=== PATIENT | male | born 1975 | race Caucasian/White ===

== ENCOUNTER 2019-09-26 21:37 | Emergency (ER) | payer OTHER, SELFPAY ==
[2019-09-26 21:49] VITALS: BP 145/87; PULSE 73; RESP 14; TEMP 36.7; O2SAT 98; BMI 33.5
[2019-09-26 22:13] VITALS: BP 121/69; PULSE 69; RESP 18; O2SAT 97
--- NOTE | 2019-09-26 22:21 | XR_ITS ---
PROCEDURE: XR FINGER LT MIN 2V CLINICAL INDICATION: Left pointer finger foreign body COMPARISON: No exams were available for comparison FINDINGS: No fracture or dislocation. No lytic or blastic change. There is normal mineralization. The joint spaces are well-preserved. No significant degenerative/arthritic changes. No erosive changes evident. Other findings:No radiopaque foreign body apparent. There is some minimal periarticular calcification medially and laterally. Dorsal osteophyte is present at the DIP joint arising from the distal phalanx IMPRESSION: No acute findings. Dictated by: Ed Horner MD 09/27/2019 07:47 Electronically signed by Ed Horner MD in [place] 09/27/2019 07:47
--- NOTE | 2019-09-26 22:23 | HMH.EDSKAF ---
ED Disposition Clinical Impression: Foreign body of finger of left hand Qualifiers: Encounter type: initial encounter Qualified Code(s): S60.459A - Superficial foreign body of unspecified finger, initial encounter Disposition: Home, Self-Care Condition on Discharge: Good Instructions: DI for Removal of Foreign Body From Skin Additional Instructions: use meds and see pcp for follow up Prescriptions: Mupirocin [Bactroban 2% Ointment 22gm tube] 1 applicatio TP BID #1 tube Prescription Printed Referrals: Provider,Referral, [Primary Care Provider] - - Critical Care Critical Care Time: No Attestation: On 09/26/19, the high probability of a clinically significant, sudden or life threatening deterioration of the following system(s) required my full and direct attention, intervention and personal management. The time I documented below is in addition to time spent performing reported procedures but includes the following listed in this critical care notation. Medical Decision Making - Medical Records Medical records reviewed: Yes: I reviewed the patient's medical records. - Simeon Inquiry Pt receiving controlled substance: No Vital Signs: 09/26/19 21:49 09/26/19 22:13 Temperature 98.1 F Temperature Source Oral Pulse Rate [Right Brachial] 73 69 Respiratory Rate 14 18 Blood Pressure [Right Arm] 145/87 H 121/69 Blood Pressure Mean [Right Arm] 106 86 Blood Pressure Source [Right Arm] Automatic Cuff Blood Pressure Position [Right Arm] Sitting 02 Sat by Pulse Oximetry 98 97 Oxygen Delivery Method Room Air Room Air Orders (Tests/Meds): ORDERS Category Date Time Status XR finger LT min 2V Stat Exams 09/26/19 22:21 Taken - Radiology Data #1 Image(s): Finger(s)/Thumb Image Reviewed: Yes I reviewed the patient's radiology image Preliminary Findings: Normal/NAD Skin/Abscess/FB HPI - General Chief complaint: Skin/Abscess/Foreign Body Stated complaint: possible foreign object/splinter in left finger Time Seen by Provider: 09/26/19 22:00 Mode of Arrival: Ambulatory Source of Information: Patient, Medical Record Limitations: No Limitations Description of Symptoms (Recalled from ER Triage Doc. by RN): Patient reports he has something in his left pointer finger. Patient is unsure what may be in his finger, just noticed it about 8 hours ago and has been picking at it but not able to get anything out. - History of Present Illness HPI narrative: possible fb lt index finger tonight complaint: foreign body Onset (ago): hour(s) Tetanus up to date: yes Location: LUE Severity: moderate Quality: foreign body sensation Relieving factors: none Associated symptoms: denies other symptoms Treatments prior to arrival: none - Related Data Previous Rx's Medication Instructions Recorded Mupirocin [Bactroban 2% Ointment 1 applicatio TP BID #1 tube 09/26/19 22gm tube] Allergies Allergy/AdvReac Type Severity Reaction Status Date / Time No Known Allergies Allergy Verified 09/26/19 22:11 [facility] History - Hepatitis A Screen Drug use history?: No High risk sexual behaviors?: No History of sexually transmitted infection?: No Currently employed?: No Childcare worker?: No Do you have indoor plumbing?: Yes Do you have electricity?: Yes Attestation statement:: This patient has been screened for Hepatitis A risk factors. I have reviewed the patient's past medical history: Yes Medical History: Denies:: Diabetes Mellitus Type 1, Diabetes Mellitus Type 2 - Social History Smoking Status: Current every day smoker Tobacco Type: cigarettes # Packs/Day (cigarettes): 1 Alcohol Intake: never Alcohol Intake Frequency:: a few times a week Occupational Status: unemployed ROS Obtained: Yes All systems reviewed & no additional complaints - Constitutional Constitutional: Denies fever(s) - Eyes Eyes: Denies change in vision - ENT Ears, Nose, Mouth, and Throat: Denies sore t
[2019-09-26 23:24] VITALS: BP 135/85; PULSE 67; RESP 16; TEMP 36.7; O2SAT 97
== END 2019-09-26 23:27 | disposition home or self-care (01) ==
PROVIDERS: Emergency Provider Emergency Medicine
DX: S60.451A Superficial foreign body of left index finger, initial encounter (principal); F17.210 Nicotine dependence, cigarettes, uncomplicated
CPT/HCPCS: 73140; 99282

== ENCOUNTER 2019-10-21 21:55 | Emergency (ER) | payer OTHER, SELFPAY ==
[2019-10-21 22:08] VITALS: BP 143/90; PULSE 89; RESP 16; O2SAT 98; BMI 33.6
--- NOTE | 2019-10-21 22:51 | PC.NURSE ---
bilateral ears irrigated
[2019-10-21 23:02] VITALS: BP 123/75; PULSE 80; RESP 15; TEMP 36.6; O2SAT 98
--- NOTE | 2019-10-21 23:02 | HMH.EDEAR ---
ED Disposition Clinical Impression: Otitis externa Qualifiers: Otitis externa type: swimmer's ear Chronicity: acute Laterality: bilateral Qualified Code(s): H60.333 - Swimmer's ear, bilateral Disposition: Home, Self-Care Condition on Discharge: Good Instructions: DI for Otitis Externa Additional Instructions: use meds and see pcp for follow up Prescriptions: cephALEXin [Keflex 500mg Cap] 500 mg PO TID #30 cap Transmission Status: Pending to [facility] predniSONE [Prednisone 20mg Tab] 20 mg PO BID #10 tab Transmission Status: Pending to [facility] Referrals: Matheus Grant [Primary Care Provider] - - Critical Care Critical Care Time: No Attestation: On 10/21/19, the high probability of a clinically significant, sudden or life threatening deterioration of the following system(s) required my full and direct attention, intervention and personal management. The time I documented below is in addition to time spent performing reported procedures but includes the following listed in this critical care notation. Medical Decision Making - Medical Records Medical records reviewed: Yes: I reviewed the patient's medical records. - Simeon Inquiry Pt receiving controlled substance: No Vital Signs: 10/21/19 22:08 Pulse Rate [Right Brachial] 89 Respiratory Rate 16 Blood Pressure [Right Arm] 143/90 H Blood Pressure Mean [Right Arm] 107 Blood Pressure Source [Right Arm] Automatic Cuff Blood Pressure Position [Right Arm] Sitting 02 Sat by Pulse Oximetry 98 Oxygen Delivery Method Room Air Orders (Tests/Meds): ED MEDICATIONS Discontinued Medications Generic Name Dose Route Start Last Admin Trade Name Dickson PRN Reason Stop Dose Admin Cephalexin HCl 500 mg 10/21/19 22:57 10/21/19 23:01 Cephalexin 500mg Capsule PO 10/21/19 22:58 500 mg ONCE ONE Administration Protocol Neomycin/Polymyxin/Hydrocortisone 10 ml 10/21/19 22:57 10/21/19 23:01 Upehnpzh-Mpytzryeq-Yh Otic Susp 10ml OT 10/21/19 22:58 2 drops ONCE ONE Administration Ear HPI - General Chief complaint: Ear Stated complaint: Both ears pain Time Seen by Provider: 10/21/19 23:02 Mode of Arrival: Family Vehicle Source of Information: Patient, Medical Record Limitations: No Limitations Description of Symptoms (Recalled from ER Triage Doc. by RN): bilateral ear pain from swimming. has tried swimmer's ear meds without any relief. - History of Present Illness HPI Narrative: ear pain rt >lt with no other c/o MD Complaint: ear pain Location: bilateral Duration: constant Severity: moderate Discharge from ear: no Treatment prior to arrival: eardrops - Related Data Previous Rx's Medication Instructions Recorded Mupirocin [Bactroban 2% Ointment 1 applicatio TP BID #1 tube 09/26/19 22gm tube] cephALEXin [Keflex 500mg Cap] 500 mg PO TID #30 cap 10/21/19 predniSONE [Prednisone 20mg 20 mg PO BID #10 tab 10/21/19 Tab] Allergies Allergy/AdvReac Type Severity Reaction Status Date / Time No Known Allergies Allergy Verified 09/26/19 22:11 [facility] History - Hepatitis A Screen Drug use history?: No High risk sexual behaviors?: No History of sexually transmitted infection?: No Currently employed?: No Childcare worker?: No Do you have indoor plumbing?: Yes Do you have electricity?: Yes Attestation statement:: This patient has been screened for Hepatitis A risk factors. I have reviewed the patient's past medical history: Yes Medical History: Denies:: Diabetes Mellitus Type 1, Diabetes Mellitus Type 2 - Social History Smoking Status: Current every day smoker Tobacco Type: cigarettes # Packs/Day (cigarettes): 1 Alcohol Intake: never Alcohol Intake Frequency:: a few times a week Occupational Status: unemployed ROS Obtained: Yes All systems reviewed & no additional complaints - Constitutional Constitutional: Denies fever(s) - Eyes Eyes: Denies change in vision
== END 2019-10-21 23:16 | disposition home or self-care (01) ==
PROVIDERS: Emergency Provider Emergency Medicine; PCP Family Medicine
DX: H60.333 Swimmer's ear, bilateral (principal); F17.210 Nicotine dependence, cigarettes, uncomplicated
CPT/HCPCS: 99281; 99282

== ENCOUNTER 2019-11-27 12:33 | Emergency (ER) | payer OTHER, SELFPAY ==
[2019-11-27 12:34] VITALS: BP 168/96; PULSE 79; RESP 16; TEMP 36.6; O2SAT 96; BMI 30.8
--- NOTE | 2019-11-27 12:50 | XR_ITS ---
PROCEDURE: XR SHOULDER RT MIN 2V CLINICAL INDICATION: pain persistent after injury last year COMPARISON: No exams were available for comparison FINDINGS: The lateral clavicle is intact and the AC joint appears normal. The humeral head and glenoid appear normal. There is a slightly lateral downsloping acromion process which could predispose to a mild degree of impingement syndrome and if clinically indicated possibly a follow-up MRI scan right shoulder would be helpful for additional evaluation. IMPRESSION: Possible mild predisposition to impingement syndrome, otherwise negative right shoulder Dictated Dr. Blair Mendez MD 11/27/2019 13:28 Dr. Blair Ramos MD in [place] 11/27/2019 13:28
--- NOTE | 2019-11-27 13:12 | XR_ITS ---
PROCEDURE: XR ELBOW RT MIN 3V CLINICAL INDICATION: pain COMPARISON: No exams were available for comparison FINDINGS: No fracture or dislocation. No lytic or blastic change. There is normal mineralization. The joint spaces are well-preserved. No significant degenerative/arthritic changes. No erosive changes evident. There are small ossifications seen just posterior to the supracondylar humerus on the lateral view which have smooth borders and probably are related to previous repeated minor trauma. There is minor spurring of the radial head. Other findings:There is no abnormal fat pad sign.. IMPRESSION: Minor posttraumatic and or arthritic changes, no acute bony pathology seen Dictated Dr. Blair Mendez MD 11/27/2019 13:32 Dr. Blair Ramos MD in [place] 11/27/2019 13:32
--- NOTE | 2019-11-27 13:20 | HMH.EDGENADL ---
ED Disposition Clinical Impression: Tendinitis of right shoulder Disposition: Home, Self-Care Condition on Discharge: Good Instructions: DI for Acute Pain -- Adult Prescriptions: methylPREDNISolone [Medrol 4mg tab] 4 mg PO DIRECTED #21 tab Transmission Status: Pending to [facility] Nabumetone 750 mg PO BID 10 Days #20 tab Transmission Status: Pending to [facility] Referrals: Matheus Grant [Primary Care Provider] - - Critical Care Critical Care Time: No Attestation: On , the high probability of a clinically significant, sudden or life threatening deterioration of the following system(s) required my full and direct attention, intervention and personal management. The time I documented below is in addition to time spent performing reported procedures but includes the following listed in this critical care notation. Medical Decision Making - Medical Records Medical records reviewed: Yes: I reviewed the patient's medical records. - Simeon Inquiry Pt receiving controlled substance: No Vital Signs: 11/27/19 12:34 Temperature 98 F Temperature Source Oral Pulse Rate [Right] 79 Respiratory Rate 16 Blood Pressure [Right Arm] 168/96 H Blood Pressure Mean [Right Arm] 120 Blood Pressure Source [Right Arm] Automatic Cuff Blood Pressure Position [Right Arm] Sitting 02 Sat by Pulse Oximetry 96 Oxygen Delivery Method Room Air - Lab Data Lab results reviewed: Yes: I reviewed the patient's lab results. Orders (Tests/Meds): ORDERS Category Date Time Status XR elbow RT min 3V Stat Exams 11/27/19 13:12 Ordered XR shoulder RT min 2V Stat Exams 11/27/19 12:50 Ordered - Radiology Data #1 Image(s): Shoulder Preliminary Findings: Normal/NAD General Adult HPI - General Chief complaint: PAIN Stated complaint: R arm pain Time Seen by Provider: 11/27/19 13:20 Mode of Arrival: Ambulatory Source of Information: Patient Limitations: No Limitations Description of Symptoms (Recalled from ER Triage Doc. by RN): Pt advises he has right arm pain and shoulder pain for the past week. Advises he injured it last year playing baseball and this week it has just been hurting a lot. - History of Present Illness HPI narrative: A 43-year-old male presents with right shoulder and arm pain. He states he injured the shoulder about a year ago playing baseball. Over the last week it has been bothering more than usual. He states the pain is more with lateral movements with abduction then abduction or flexion of the shoulder. He rates his pain currently as 4 out of 10 and classifies it as sharp. He denies any other issues. He states that he has no other health problems.Patient denies any recent cough or shortness of breath, patient denies any sore throat or headache, patient denies any loss of taste or smell, patient denies any malaise or fatigue, patient denies any abdominal pain nausea vomiting or diarrhea. - Related Data Previous Rx's Medication Instructions Recorded Mupirocin [Bactroban 2% Ointment 1 applicatio TP BID #1 tube 09/26/19 22gm tube] cephALEXin [Keflex 500mg Cap] 500 mg PO TID #30 cap 10/21/19 predniSONE [Prednisone 20mg 20 mg PO BID #10 tab 10/21/19 Tab] Nabumetone 750 mg PO BID 10 Days #20 tab 11/27/19 methylPREDNISolone [Medrol 4mg 4 mg PO DIRECTED #21 tab 11/27/19 tab] Allergies Allergy/AdvReac Type Severity Reaction Status Date / Time No Known Allergies Allergy Verified 09/26/19 22:11 [facility] History - Hepatitis A Screen Drug use history?: No High risk sexual behaviors?: No History of sexually transmitted infection?: No Currently employed?: No Childcare worker?: No Do you have indoor plumbing?: Yes Do you have electricity?: Yes Attestation statement:: This patient has been screened for Hepatitis A risk factors. I have reviewed the patient's past medical history: Yes Medical History: Denies:: Diabetes Mellitus Type 1,
[2019-11-27 13:40] VITALS: BP 160/87; PULSE 87; RESP 17; TEMP 36.8; O2SAT 100
== END 2019-11-27 14:05 | disposition home or self-care (01) ==
LOC: ER 15:24
PROVIDERS: Emergency Provider Family Medicine; PCP Family Medicine
DX: M75.81 Other shoulder lesions, right shoulder (principal); F17.210 Nicotine dependence, cigarettes, uncomplicated
CPT/HCPCS: 73030; 73080; 99282

== ENCOUNTER 2019-12-31 00:29 | Emergency (ER) | payer OTHER, SELFPAY ==
[2019-12-31 00:49] VITALS: BP 147/88; PULSE 81; RESP 16; TEMP 36.7; O2SAT 97; BMI 30.9
--- NOTE | 2019-12-31 01:05 | HMH.EDEYEP ---
ED Disposition Clinical Impression: Conjunctivitis Qualifiers: Conjunctivitis type: acute Acute conjunctivitis type: unspecified Laterality: left Qualified Code(s): H10.32 - Unspecified acute conjunctivitis, left eye Disposition: Home, Self-Care Condition on Discharge: Good Instructions: DI for Eye Pain Additional Instructions: use meds as directed and call dr scanlon in [place]- number given pt Referrals: PCP,No [Primary Care Provider] - - Critical Care Critical Care Time: No Attestation: On 12/31/19, the high probability of a clinically significant, sudden or life threatening deterioration of the following system(s) required my full and direct attention, intervention and personal management. The time I documented below is in addition to time spent performing reported procedures but includes the following listed in this critical care notation. Medical Decision Making - Medical Records Medical records reviewed: Yes: I reviewed the patient's medical records. - Simeon Inquiry Pt receiving controlled substance: No Vital Signs: 12/31/19 00:49 Temperature 98.1 F Temperature Source Oral Pulse Rate [Right Brachial] 81 Respiratory Rate 16 Blood Pressure [Right Arm] 147/88 H Blood Pressure Mean [Right Arm] 107 Blood Pressure Source [Right Arm] Automatic Cuff Blood Pressure Position [Right Arm] Sitting 02 Sat by Pulse Oximetry 97 Oxygen Delivery Method Room Air Eye Problem HPI - General Chief complaint: Eye Problems Stated complaint: AO 12/28/19 foreign body left eye Time Seen by Provider: 12/31/19 01:05 Mode of Arrival: Ambulatory Source of Information: Patient, Medical Record Limitations: No Limitations Description of Symptoms (Recalled from ER Triage Doc. by RN): Patient reports 2 days ago he was cutting wood and that night noticed his left eye was irritated. Patient reports over the next two days his his left eye has gotten red, swollen and painful. - History of Present Illness HPI Narrative: pain over the last few days lt eye with possible foreign body - no gross drainage but red - no visual loss MD chief complaint: eye pain Onset (ago): day(s) Onset description: gradual Location: left eye Place: home Severity: moderate Associated symptoms: none - Related Data Previous Rx's Medication Instructions Recorded Mupirocin [Bactroban 2% Ointment 1 applicatio TP BID #1 tube 09/26/19 22gm tube] cephALEXin [Keflex 500mg Cap] 500 mg PO TID #30 cap 10/21/19 predniSONE [Prednisone 20mg 20 mg PO BID #10 tab 10/21/19 Tab] Nabumetone 750 mg PO BID 10 Days #20 tab 11/27/19 methylPREDNISolone [Medrol 4mg 4 mg PO DIRECTED #21 tab 11/27/19 tab] Allergies Allergy/AdvReac Type Severity Reaction Status Date / Time No Known Allergies Allergy Verified 09/26/19 22:11 [facility] History - Hepatitis A Screen Drug use history?: No High risk sexual behaviors?: No History of sexually transmitted infection?: No Currently employed?: No Childcare worker?: No Do you have indoor plumbing?: Yes Do you have electricity?: Yes Attestation statement:: This patient has been screened for Hepatitis A risk factors. I have reviewed the patient's past medical history: Yes Medical History: Denies:: Diabetes Mellitus Type 1, Diabetes Mellitus Type 2 - Social History Smoking Status: Current every day smoker Tobacco Type: cigarettes # Packs/Day (cigarettes): 1 Alcohol Intake: never Alcohol Intake Frequency:: a few times a week Occupational Status: unemployed ROS Obtained: Yes All systems reviewed & no additional complaints - Constitutional Constitutional: Denies fever(s) - Eyes Eyes: Reports as per HPI, Denies change in vision, Denies loss of vision, Denies photophobia - ENT Ears, Nose, Mouth, and Throat: Denies epistaxis - Cardiovascular Cardiovascular: Denies chest pain - Respiratory Respiratory: No change in phlegm color - Gastrointestinal Gastrointestingal: Denies: diarrhea
[2019-12-31 01:10] VITALS: BP 157/87; PULSE 81; RESP 18; O2SAT 99
[2019-12-31 01:14] VITALS: BP 152/87; PULSE 80; RESP 16; TEMP 36.7; O2SAT 98
== END 2019-12-31 01:18 | disposition home or self-care (01) ==
PROVIDERS: Emergency Provider Emergency Medicine
DX: H10.32 Unspecified acute conjunctivitis, left eye (principal); F17.210 Nicotine dependence, cigarettes, uncomplicated
CPT/HCPCS: 99282

== ENCOUNTER 2020-03-17 15:57 | Emergency (ER) | payer OTHER, SELFPAY ==
--- NOTE | 2020-03-17 15:55 | ECG_ITS ---
APPROVED REPORT Exam: Resting ECG HR:78 bpm ECG Measurements Heart Rate 78 AXES DC 162 P 50 QRSd 102 QRS 62 QT 382 T 75 QTc 435 Conclusion Normal sinus rhythm Normal ECG Electronically signed by : Blaine Monet, 03/18/2020 07:30:59
[2020-03-17 15:58] VITALS: BP 168/111; PULSE 87; RESP 19; TEMP 36.8; O2SAT 98; BMI 24.4
--- NOTE | 2020-03-17 16:07 | XR_ITS ---
PROCEDURE: XR CHEST 2V CLINICAL HISTORY: chest pain COMPARISON: No exams were available for comparison FINDINGS: The cardiomediastinal silhouette and pulmonary vascularity are within normal limits. The lungs are clear without infiltrates, suspicious nodules, or pleural effusions. No acute bony abnormalities. IMPRESSION: No acute findings. Dictated by: Ed Horner MD 03/17/2020 18:02 Ed Horner MD in [place] 03/17/2020 18:02
--- NOTE | 2020-03-17 16:12 | CT_ITS ---
PROCEDURE: CT ABDOMEN PELVIS W CON CLINICAL INDICATION: abd pain Epigastric pain with chest pain COMPARISON: No exams were available for comparison TECHNIQUE: IV Contrast: 75ML Isovue 370 Oral Contrast None Axial images obtained with sagittal and coronal reformats. All CT scans at the facility use one or more dose reduction, viz: automated exposure control, ma/kV adjustment per patient size (including targeted exams where dose is matched to indication, i.e. head), or iterative reconstruction technique. FINDINGS: LOWER THORAX: COPD in the lung bases. Coronary artery calcifications are present. ABDOMEN & PELVIS: Gallbladder appears contracted with minimal thickening of the wall. The liver and spleen have an unremarkable appearance. The adrenal glands have an unremarkable appearance. Pancreas is unremarkable. There is a 2 cm right renal exophytic cyst. No renal or ureteral calculi. No hydronephrosis. There is a mild amount of retained colonic feces. No evidence of appendicitis. No intestinal obstruction or free air. The prostate is slightly enlarged at 4.8 cm. No pelvic mass or abnormal fluid collection. No evidence of diverticulitis. 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 There is kyphosis at that level. IMPRESSION: No acute finding. Dictated by: Ed Horner MD 03/17/2020 17:13 Ed Horner MD in [place] 03/17/2020 17:13
--- NOTE | 2020-03-17 16:13 | HMH.EDCP ---
ED Disposition Clinical Impression: Epigastric pain Chest pain Qualifiers: Chest pain type: unspecified Qualified Code(s): R07.9 - Chest pain, unspecified Disposition: Home, Self-Care Condition on Discharge: Good Additional Instructions: You were seen on an emergency basis. It is very important that you follow up with your primary care provider and/or specialist as we discussed within 2 days. All labs and imaging were obtained and interpreted here to rule out life threatening emergencies, but your final results should be reviewed by your primary doctor at your follow up appointment. Please return to the emergency department if any of your symptoms worsen, or if they do not improve as we discussed. Referrals: Provider,Referral, [Referring] - - Critical Care Critical Care Time: No Attestation: On 03/17/20, the high probability of a clinically significant, sudden or life threatening deterioration of the following system(s) required my full and direct attention, intervention and personal management. The time I documented below is in addition to time spent performing reported procedures but includes the following listed in this critical care notation. Medical Decision Making - Medical Records Medical records reviewed: Yes: I reviewed the patient's medical records. - Simeon Inquiry Pt receiving controlled substance: No Vital Signs: 03/17/20 15:58 03/17/20 17:15 Temperature 98.3 F Temperature Source Oral Pulse Rate [Left Radial] 87 71 Respiratory Rate 19 17 Blood Pressure [Right Arm] 168/111 H 156/94 H Blood Pressure Mean [Right Arm] 130 114 Blood Pressure Source [Right Arm] Automatic Cuff Automatic Cuff Blood Pressure Position [Right Arm] Sitting Sitting 02 Sat by Pulse Oximetry 98 96 Oxygen Delivery Method Room Air Room Air - Lab Data Lab Results 03/17/20 16:00: WBC 11.2 H, RBC 4.98, Hgb 15.9, Hct 48.5, MCV 97.4 H, MCH 31.9 H, MCHC 32.7, RDW 14.0, Plt Count 275, MPV 13.1 H, Neut % (Auto) 63.2, Lymph % (Auto) 28.2, [place] % (Auto) 5.0, Eos % (Auto) 2.7, Baso % (Auto) 1.0, Neut # (Auto) 7.1, Lymph # (Auto) 3.2, [place] # (Auto) 0.6, Eos # (Auto) 0.3, Baso # (Auto) 0.1 03/17/20 16:00: Sodium 131 L, Potassium 4.3, Chloride 97 L, Carbon Dioxide 26, Anion Gap 12.3, BUN 8 L, Creatinine 0.80, Estimated Creat Clear 131, Estimated GFR 105, Est GFR ( Amer) 126, Glucose 299 H, Calcium 9.0, Troponin I < 0.01 03/17/20 16:00: Total Bilirubin 0.6, Direct Bilirubin 0.3, Conjugated Bilirubin 0.0, Indirect Bilirubin 0.3, Unconjugated Bilirubin 0.3, AST 28, ALT 19, Alkaline Phosphatase 69, Total Protein 7.4, Albumin 4.4, Lipase 46 03/17/20 16:00: PT 10.5, INR 0.94, APTT 26.7 03/17/20 18:01: Urine Color Yellow, Urine Appearance Clear, Urine pH 6.5, Ur Specific [place] 1.010, Urine Protein Negative, Urine Glucose (UA) 3+, Urine Ketones Negative, Urine Blood Negative, Urine Nitrate Negative, Urine Bilirubin Negative, Urine Urobilinogen 0.2, Ur Leukocyte Esterase Negative, Urine RBC Occasional 03/17/20 19:15: Troponin I < 0.01 Result diagrams: 03/17/20 16:00 03/17/20 16:00 Orders (Tests/Meds): ED MEDICATIONS Discontinued Medications Generic Name Dose Route Start Last Admin Trade Name Freq PRN Reason Stop Dose Admin Belladonna Alkaloids 60 ml 03/17/20 16:12 03/17/20 16:56 Gi Cocktail 60ml Udc PO 03/17/20 16:13 60 ml ONCE ONE Administration Lactated Ringer's 1,000 mls @ 999 mls/hr 03/17/20 16:15 03/17/20 16:57 Lactated Ringer's 1000 Ml Bag IV 03/17/20 17:15 999 mls/hr .Q1H1M DEANNA Administration Iopamidol 75 ml 03/17/20 16:42 03/17/20 16:42 Iopamidol-370 (76%);100ml Bottle IV 03/17/20 16:43 75 ml ONCE ONE Administration Morphine Sulfate 4 mg 03/17/20 16:12 03/17/20 16:56 Morphine 4mg/Ml Syringe IV 03/17/20 16:13 4 mg ONCE ONE Administration Sodium Chloride 10 ml 03/17/20 16:42 03/17/20 16:42 Sodium Chloride 0.9% 10ml Syr (Rad Only) IV 03/17/20 16:43 10 ml ONC
[2020-03-17 16:19] LABS: Basophils # 0.1 K/mm3 (0-0.2); Eosinophils # 0.3 K/mm3 (0.0-0.4); Eosinophils % 2.7 % (0.1-12.0); Hematocrit 48.5 % (42.0-52.0); Hemoglobin 15.9 g/dL (14.1-18.0); Lymphocytes # 3.2 K/mm3 (0.7-4.5); Lymphocytes % 28.2 % (10-50); Mean Corpuscular HGB Conc 32.7 g/dL (31.8-35.4); Mean Corpuscular Hemoglobin 31.9 pg (27.0-31.2); Mean Corpuscular Volume 97.4 fl (80-94); Mean Platelet Volume 13.1 fl (7.4-10.4); Monocytes # 0.6 K/mm3 (0.1-1.0); Neutrophils # 7.1 K/mm3 (1.8-7.8); Neutrophils % 63.2 % (37.0-80.0); Platelet Count 275 K/mm3 (142-424); Red Blood Count 4.98 M/mm3 (4.60-6.20); White Blood Count 11.2 K/mm3 (4.8-10.8)
[2020-03-17 16:22] LABS: Chloride 97 mmol/L (98-107); Sodium 131 mmol/L (136-145)
[2020-03-17 16:23] LABS: Potassium 4.3 mmoL/L (3.5-5.1)
[2020-03-17 16:25] LABS: Blood Urea Nitrogen 8 mg/dl (9-20); Creatinine Clearance Estimated 131 mL/min (50-200); Estimated Glomerular Filt Rate 105 ml/min (>60); GFR (African American) 126 ML/MIN (>60)
[2020-03-17 16:26] LABS: Alanine Aminotransferase 19 U/L (12-78); Albumin Level 4.4 g/dl (3.5-5.0); Alkaline Phosphatase 69 U/L (38-126); Anion Gap 12.3 mEq/L (5-15); Aspartate Amino Transferase 28 U/L (17-59); Bilirubin,Direct 0.3 mg/dl (0.0-0.4); Bilirubin,Indirect 0.3 mg/dL (0.0-0.9); Bilirubin,Total 0.6 mg/dl (0.2-1.3); Bilirubin,Unconjugated 0.3 mg/dL (0.0-1.1); Carbon Dioxide 26 mmol/L (22.0-30.0); Glucose 299 mg/dl (74-100); Lipase 46 U/L (23-300); Total Protein,Serum 7.4 g/dl (6.3-8.2)
[2020-03-17 16:43] LABS: Troponin I < 0.01 ng/ml (0.00-0.034)
--- NOTE | 2020-03-17 16:43 | PC.NURSE ---
Pt with rad. v/s delayed.
[2020-03-17 16:56] LABS: Activated Partial Thrombo Time 26.7 seconds (23.6-34.0); INR 0.94 (0.9-1.1); Prothrombin Time 10.5 seconds (9.4-11.8)
[2020-03-17 17:15] VITALS: BP 156/94; PULSE 71; RESP 17; O2SAT 96
[2020-03-17 18:06] LABS: Microscopic, Urine URINE MICROSCOPIC (MICROSCOPIC)
[2020-03-17 18:23] LABS: Appearance,Urine CLEAR (Clear); Bilirubin,Urine Negative (Negative); Blood, Urine Negative (Negative); Color,Urine YELLOW (Yellow); Glucose,Urine (UA) 3+ (Negative); Ketones,Urine Negative (Negative); Leukocyte Esterase,Urine Negative (Negative); Nitrate,Urine Negative (Negative); PH,Urine 6.5 (5.0-8.5); Protein,Urine Negative (Negative); Urobilinogen,Urine 0.2 EU/dl (0.2)
[2020-03-17 18:35] LABS: RBC,Urine Occasional #/hpf (0-3)
[2020-03-17 20:02] LABS: Troponin I < 0.01 ng/ml (0.00-0.034)
[2020-03-17 20:33] VITALS: BP 155/88; PULSE 76; RESP 14; TEMP 36.8; O2SAT 98
== END 2020-03-17 20:35 | disposition home or self-care (01) ==
PROVIDERS: Emergency Provider Physician Assistant; PCP Family Medicine
DX: R07.9 Chest pain, unspecified (principal); F17.210 Nicotine dependence, cigarettes, uncomplicated
CPT/HCPCS: 71046; 74177; 80048; 80076; 81001; 83690; 84484; 85025; 85610; 85730; 93005; 96365; 96375; 99283; Q9967

== ENCOUNTER 2020-07-03 18:04 | Emergency (ER) | payer OTHER, SELFPAY ==
[2020-07-03 18:06] VITALS: BP 179/99; PULSE 78; RESP 18; TEMP 36.7; O2SAT 99; BMI 30.7
[2020-07-03 18:23] VITALS: BP 177/81; PULSE 87; RESP 16; TEMP 36.7; O2SAT 98
--- NOTE | 2020-07-03 18:24 | XR_ITS ---
PROCEDURE: XR WRIST RT 2V CLINICAL INDICATION: RIGHT WRIST INJURY COMPARISON: No exams were available for comparison FINDINGS: No definite fracture or dislocation. Nonspecific lucency is noted in the mid to medial aspect of the distal radius also at the articular surface just proximal to the lunate. This is of questionable clinical significance. If pain persists, consider follow-up exam with three views. The joint spaces are well-preserved. No significant degenerative/arthritic changes. No erosive changes evident. Other findings:None. IMPRESSION: No definite fracture or dislocation. Nonspecific lucency is noted in the mid to medial aspect of the distal radius also at the articular surface just proximal to the lunate. This is of questionable clinical significance. If pain persists, consider follow-up exam with three views or CT scan. Dictated by: Ed Horner MD 07/04/2020 05:54 Ed Horner MD in [place] 07/04/2020 05:54
--- NOTE | 2020-07-03 18:56 | PC.NURSE ---
DR CATHERINE SPEAKING WITH ORTHO
--- NOTE | 2020-07-03 19:00 | HMH.EDGENADL ---
ED Disposition Clinical Impression: Puncture wound of right wrist Qualifiers: Encounter type: initial encounter Qualified Code(s): S61.531A - Puncture wound without foreign body of right wrist, initial encounter Disposition: Home, Self-Care Condition on Discharge: Fair Instructions: DI for Puncture Wound Additional Instructions: Wear wrist brace. Elevate your hand and wrist tonight and apply ice 20 minutes every 4 hours to reduce swelling. Dr. Petit's office will call you tomorrow morning to give you an appointment time to be seen in their clinic tomorrow. Return to the emergency department if pain becomes intolerable, any fever, redness or red streaks at the site of the puncture wound, or worsening numbness. Additional instructions for CONTROLLED SUBSTANCES: You have been prescribed a medication that is a controlled substance. Controlled substances include pain medications known as opiates and sedative nerve medications known as benzodiazepines. Tramadol, fioricet, and gabapentin are also controlled substances. Some common opiates include: Codeine (such as Tylenol #3) Hydrocodone (Vicodin, Lortab, Lorcet, Butler) Oxycodone (Percocet, Percodan, Oxycodone, Oxy IR) Some common benzodiazepines include: Diazepam (Valium) Lorazepam (Ativan) Alprazolam (Xanax) Clonazepam (Klonopin) Oxazepam (Serax) All of these controlled substances are highly addictive and frequently abused. Misuse can and frequently does lead to addiction as well as overdose and . Medication should be stored in a locked cabinet or other secure storage unit. Do not store the medication in a motor vehicle. Short term supplies, 3 days or less, are prescribed because of the highly addictive nature of the medication. Any of the controlled substance medication NOT taken should be disposed of properly and NOT SAVED. The recommended method of disposing of unused medications is: Place the medicines in a sealable plastic bag. If the medicine is a solid, crush it or add water to dissolve it. Add something undesirable (cat litter, coffee grounds, etc.) Dispose of sealed bag in household trash Do not flush or pour unused medicines down a sink or drain. Controlled substances should not be shared, given away or sold. Because of the addictive nature and frequent abuse, these medications are sometimes stolen. These medications should be kept in a safe place where they cannot be stolen. Do not keep them in your car or purse. Lost or stolen prescriptions for controlled substances WILL NOT BE REFILLED in this emergency department, regardless of whether a police report was filed. Prescriptions: Oxycodone HCl/Acetaminophen [Percocet 5/325mg tablet] 1 tab PO Q6HP PRN #10 tablet PRN Reason: Moderate To Severe Pain Transmission Status: Sent to [facility] cephALEXin [Cephalexin 500mg Tab] 500 mg PO Q6H #40 tab Transmission Status: Pending to [facility] Referrals: Matheus Grant JR, MD [Primary Care Provider] - - Critical Care Critical Care Time: No Attestation: On 07/03/20, the high probability of a clinically significant, sudden or life threatening deterioration of the following system(s) required my full and direct attention, intervention and personal management. The time I documented below is in addition to time spent performing reported procedures but includes the following listed in this critical care notation. Medical Decision Making - Simeon Inquiry Pt receiving controlled substance: Yes Simeon was queried for this patient: Yes Risks and benefits of using a controlled substance: were discussed with pt by me Vital Signs: 07/03/20 18:06 07/03/20 18:23 Temperature 98.0 F 98.1 F Temperature Source Oral Pulse Rate 87 Pulse Rate [Right] 78 Respiratory Rate 18 16 Blood Pressure 177/81 H Blood Pressure [Right Arm] 179/99 H Blood Pressure Mean [Right Arm] 125 02 Sat by Pulse Oximetry 99 98 Oxygen Del
[2020-07-03 19:38] VITALS: BP 170/96; PULSE 70; RESP 16; TEMP 36.7; O2SAT 99
== END 2020-07-03 19:40 | disposition home or self-care (01) ==
PROVIDERS: Emergency Provider Emergency Medicine; PCP Family Medicine
DX: S61.531A Puncture wound without foreign body of right wrist, initial encounter (principal); S50.11XA Contusion of right forearm, initial encounter; W22.8XXA Striking against or struck by other objects, initial encounter; Y92.89 Other specified places as the place of occurrence of the external cause; Z23 Encounter for immunization; F17.210 Nicotine dependence, cigarettes, uncomplicated
CPT/HCPCS: 73100; 90471; 90715; 99282

== ENCOUNTER 2020-10-22 17:50 | Emergency (ER) | payer OTHER, SELFPAY ==
[2020-10-22 17:55] VITALS: BP 148/83; PULSE 81; RESP 18; TEMP 37; O2SAT 97; BMI 33.9; BMI 34.0
--- NOTE | 2020-10-22 18:50 | HMH.EDUTC ---
[facility] [place] Disposition Clinical Impression: Facial cellulitis Disposition: Home, Self-Care Condition on Discharge: Good Instructions: Cellulitis Additional Instructions: Return to the ER for any worsening symptoms, especially any worsening swelling, fever, etc. Take the antibiotics as directed. Take the ibuprofen that I sent to your pharmacy for pain. Apply warm wet compresses to the area 4 times per day for 15 minutes or so each time. Follow up with your primary care doctor within 24 to 48 hours for a recheck. GO TO THE ER FOR ANY WORSENING SYMPTOMS OR CONCERNS Prescriptions: Ibuprofen [Ibuprofen 600mg Tablet] 600 mg PO Q6HP PRN #30 tab PRN Reason: Mild Pain Transmission Status: Received by [facility] Sulfamethoxazole/Trimethoprim [Bactrim DS tablet] 1 each PO BID 10 Days #20 tab Transmission Status: Received by [facility] cephALEXin [cephALEXin 500mg capsule] 500 mg PO Q6H 10 Days #40 cap Transmission Status: Received by [facility] Referrals: Matheus Grant JR, MD [Primary Care Provider] - Time of Disposition: 19:02 Medical Decision Making - Medical Records Medical records reviewed: No: I reviewed the patient's medical records. - Simeon Inquiry Pt receiving controlled substance: No Vital Signs: 10/22/20 17:55 10/22/20 19:07 Temperature 98.6 F 98.6 F Temperature Source Oral Pulse Rate 81 Pulse Rate [Left] 81 Respiratory Rate 18 18 Blood Pressure 148/83 H Blood Pressure [Left Arm] 148/83 H Blood Pressure Mean [Left Arm] 104 Blood Pressure Source [Left Arm] Automatic Cuff Blood Pressure Position [Left Arm] Sitting 02 Sat by Pulse Oximetry 97 Oxygen Delivery Method Room Air Orders (Tests/Meds): ED MEDICATIONS Discontinued Medications Generic Name Dose Route Start Last Admin Trade Name Freq PRN Reason Stop Dose Admin Ceftriaxone Sodium 1 gm 10/22/20 18:58 10/22/20 18:50 Ceftriaxone 1gm Vial IM 10/22/20 18:59 1 gm ONCE ONE Administration Protocol Lidocaine HCl 0 ml 10/22/20 18:58 10/22/20 18:50 Lidocaine 1% 5ml Pf Vial IM 10/22/20 18:59 2.1 ml ONCE ONE Administration [facility] [place] HPI - General Stated complaint: Spot above R Eye Time Seen by Provider: 10/22/20 18:50 Mode of Arrival: Ambulatory Source of Information: Patient Limitations: No Limitations Description of Symptoms (Recalled from Triage Doc. by RN): PATIENT C/O SWELLING, REDNESS AND TENDERNESS ABOVE RIGHT EYE X 2 DAYS. HE REPORTS HE HAD A SPOT THAT HE SQUEEZED AND SYMPTOMS STARTED AFTER THAT. DENIES ANY VISION CHANGES HEENT Symptoms (Recalled from RN notes): Yes Resp Symptoms (Recalled from RN notes): No Skin Symptoms (Recalled from RN notes): No MS Symptoms (Recalled from RN notes): No Functional Status (Recalled from RN notes): WNL - History of Present Illness Provider Complaint: He states he has had a tender swollen area above his right eye for the past 2 days. He denies any injury. He thinks that he was bit by a bug and this this started. He denies any eye pain. - Related Data Previous Rx's Medication Instructions Recorded Ibuprofen [Ibuprofen 600mg 600 mg PO Q6HP PRN #30 tab 10/22/20 Tablet] Sulfamethoxazole/Trimethoprim 1 each PO BID 10 Days #20 tab 10/22/20 [Bactrim DS tablet] cephALEXin [cephALEXin 500mg 500 mg PO Q6H 10 Days #40 cap 10/22/20 capsule] Allergies Allergy/AdvReac Type Severity Reaction Status Date / Time No Known Allergies Allergy Verified 07/04/20 13:42 - Worker's Comp Is this a Worker's Comp case?: No [facility] History - Hepatitis A Screen Drug use history?: No High risk sexual behaviors?: No History of sexually transmitted infection?: No Currently employed?: No Childcare worker?: No Do you have indoor plumbing?: Yes Do you have electricity?: Yes Attestation statement:: This patient has been screened for Hepatitis A risk factors. I have reviewed the patient's past medical history:
[2020-10-22 19:07] VITALS: BP 148/83; PULSE 81; RESP 18; TEMP 37; O2SAT 97
== END 2020-10-22 19:10 | disposition home or self-care (01) ==
PROVIDERS: Emergency Provider Nurse Practitioner Family; PCP Family Medicine
DX: L03.211 Cellulitis of face (principal); F17.210 Nicotine dependence, cigarettes, uncomplicated
CPT/HCPCS: 96372; 99202; G0463

== ENCOUNTER → 2020-10-24 17:39 | Outpatient (CLI) | payer OTHER, SELFPAY | PROVIDERS: Visit Provider Family Medicine | DX: L02.01 Cutaneous abscess of face (principal); L02.91 Cutaneous abscess, unspecified | CPT/HCPCS: 87070; 87077; 87186; 87205 ==

== ENCOUNTER 2021-01-18 21:24 | Emergency (ER) | payer OTHER, SELFPAY ==
--- NOTE | 2021-01-18 21:21 | ECG_ITS ---
APPROVED REPORT Exam: Resting ECG HR:85 bpm ECG Measurements Heart Rate 85 AXES ID 174 P 55 QRSd 106 QRS 62 QT 394 T 42 QTc 468 Conclusion Normal sinus rhythm Normal ECG Electronically signed by : Blaine Monet MD 01/20/2021 10:58:02
[2021-01-18 21:24] VITALS: BP 149/86; PULSE 85; RESP 18; TEMP 36.7; O2SAT 98; BMI 30.9
--- NOTE | 2021-01-18 21:27 | XR_ITS ---
PROCEDURE INFORMATION: Exam: XR Chest Exam date and time: 01/18/2021 9:27 PM Age: 45 years old Clinical indication: Pain; Chest pressure; Additional info: Cp TECHNIQUE: Imaging protocol: XR of the chest. Views: 2 views. COMPARISON: CR XR CHEST 2V 03/17/2020 4:44 PM FINDINGS: Airway: Patent Lungs: Unremarkable. No consolidation. Pleural spaces: Unremarkable. No pleural effusion. No pneumothorax. Heart/Mediastinum: Unremarkable. No cardiomegaly. Bones/joints: No acute skeletal abnormality or aggressive osseous lesion. IMPRESSION: No acute findings.
[2021-01-18 21:34] LABS: Coronavirus 19, PCR Not Detected (NotDetected); Influenza A, PCR Not Detected (NotDetected); Influenza B, PCR Not Detected (NotDetected)
[2021-01-18 21:38] LABS: Basophils # 0.1 K/mm3 (0-0.2); Eosinophils # 0.3 K/mm3 (0.0-0.4); Eosinophils % 2.9 % (0.1-12.0); Hemoglobin 15.8 g/dL (14.1-18.0); Lymphocytes % 29.5 % (10-50); Mean Corpuscular HGB Conc 32.9 g/dL (31.8-35.4); Mean Corpuscular Hemoglobin 32.2 pg (27.0-31.2); Mean Corpuscular Volume 97.9 fl (80-94); Mean Platelet Volume 8.2 fl (7.4-10.4); Monocytes # 0.4 K/mm3 (0.1-1.0); Monocytes % 3.9 % (1.7-9.3); Neutrophils # 6.4 K/mm3 (1.8-7.8); Neutrophils % 62.6 % (37.0-80.0); Platelet Count 257 K/mm3 (142-424); Red Blood Count 4.91 M/mm3 (4.60-6.20); Red Cell Distribution Width 13.8 % (11.5-17.5); White Blood Count 10.3 K/mm3 (4.8-10.8)
[2021-01-18 21:45] LABS: Alanine Aminotransferase 18 U/L (12-78); Albumin Level 4.1 g/dl (3.5-5.0); Albumin/Globulin Ratio 1.4 (1.1-1.8); Alkaline Phosphatase 65 U/L (38-126); Anion Gap 10.1 mEq/L (5-15); Aspartate Amino Transferase 25 U/L (17-59); Bilirubin,Total 0.3 mg/dl (0.2-1.3); Blood Urea Nitrogen 3 mg/dl (9-20); Calcium 8.6 mg/dl (8.4-10.2); Carbon Dioxide 28 mmol/L (22.0-30.0); Chloride 99 mmol/L (98-107); Creatinine Clearance Estimated 219 mL/min (50-200); Estimated Glomerular Filt Rate 145 ml/min (>60); GFR (African American) 176 ML/MIN (>60); Globulin 2.9 g/dL (1.3-3.2); Glucose 236 mg/dl (74-100); Potassium 4.1 mmoL/L (3.5-5.1); Sodium 133 mmol/L (136-145)
--- NOTE | 2021-01-18 21:46 | HMH.EDCP ---
ED Disposition Clinical Impression: Tobacco use, Obesity (BMI 30-39.9) Chest pain Qualifiers: Chest pain type: precordial pain Qualified Code(s): R07.2 - Precordial pain Disposition: Left Against Medical Advice Condition on Discharge: Good Instructions: DI for Chest Pain Additional Instructions: return to ed if needed tonight and keep appt in am Referrals: Provider,Referral, [Primary Care Provider] - - Critical Care Critical Care Time: No Attestation: On 01/18/21, the high probability of a clinically significant, sudden or life threatening deterioration of the following system(s) required my full and direct attention, intervention and personal management. The time I documented below is in addition to time spent performing reported procedures but includes the following listed in this critical care notation. Medical Decision Making - Medical Records Medical records reviewed: Yes: I reviewed the patient's medical records. - Simeon Inquiry Pt receiving controlled substance: No Vital Signs: 01/18/21 21:24 Temperature 98.1 F Temperature Source Oral Pulse Rate [Right] 85 Respiratory Rate 18 Blood Pressure [Right Arm] 149/86 H Blood Pressure Mean [Right Arm] 107 02 Sat by Pulse Oximetry 98 - Lab Data Lab results reviewed: Yes: I reviewed the patient's lab results. Lab Results 01/18/21 21:25: WBC 10.3, RBC 4.91, Hgb 15.8, Hct 48.0, MCV 97.9 H, MCH 32.2 H, MCHC 32.9, RDW 13.8, Plt Count 257, MPV 8.2, Neut % (Auto) 62.6, Lymph % (Auto) 29.5, [place] % (Auto) 3.9, Eos % (Auto) 2.9, Baso % (Auto) 1.0, Neut # (Auto) 6.4, Lymph # (Auto) 3.0, [place] # (Auto) 0.4, Eos # (Auto) 0.3, Baso # (Auto) 0.1, ESR 6 01/18/21 21:25: Sodium 133 L, Potassium 4.1, Chloride 99, Carbon Dioxide 28, Anion Gap 10.1, BUN 3 L, Creatinine 0.60 L, Estimated Creat Clear 219, Estimated GFR 145, Est GFR ( Amer) 176, Glucose 236 H, Calcium 8.6, Total Bilirubin 0.3, AST 25, ALT 18, Alkaline Phosphatase 65, Troponin I < 0.01, C-Reactive Protein 2.5, Total Protein 7.0, Albumin 4.1, Globulin 2.9, Albumin/Globulin Ratio 1.4, Procalcitonin 0.057 01/18/21 21:25: SARS-CoV-2 (PCR) Not detected, Influenza A Untype (PCR) Not detected, Influenza Type B (PCR) Not detected 01/18/21 21:25: Hemoglobin A1c 8.8 H Result diagrams: 01/18/21 21:25 01/18/21 21:25 Orders (Tests/Meds): ED MEDICATIONS Generic Name Dose Route Start Last Admin Trade Name Freq PRN Reason Stop Dose Admin Sodium Chloride 1,000 mls @ 999 mls/hr 01/18/21 21:30 01/18/21 21:30 Sod Chlor 0.9% 1000ml Bag IV 01/18/21 22:30 999 mls/hr .Q1H1M DEANNA Administration Nitroglycerin 0.4 mg 01/18/21 21:28 01/18/21 21:32 Nitroglycerin 0.4mg Sl Tablet SL 02/17/21 21:27 0.4 mg Q5MINP PRN Administration Chest Pain Discontinued Medications Generic Name Dose Route Start Last Admin Trade Name Freq PRN Reason Stop Dose Admin Aspirin 324 mg 01/18/21 21:28 01/18/21 21:31 Aspirin 81mg Chewable Tablet PO 01/18/21 21:29 324 mg ONCE ONE Administration Nitroglycerin 1 gm 01/18/21 22:03 Nitroglycerin 1 Gm Ointment TD 01/18/21 22:04 ONCE ONE ORDERS Category Date Time Status Chest XR 2 view (NOT portable) [XR chest 2V] Stat Exams 01/18/21 21:27 Taken Troponin I Q3H Lab 01/19/21 00:30 Ordered Troponin I Q3H Lab 01/19/21 03:30 Ordered - Radiology Data #1 Image(s): Chest Image Reviewed: Yes I reviewed the patient's radiology image Preliminary Findings: Normal/NAD - ECG Data Tracing #1 Normal Sinus Rhythm: Yes Ischemic changes: non-specific ST-T wave changes Tracing #2 Normal Sinus Rhythm: Yes Ischemic changes: non-specific ST-T wave changes Medical Decision Narrative: pt declined at this time to be admitted or remain for second trop- has appt with pcp in am Chest Pain HPI - General Chief Complaint: Chest Pain Stated Complaint: CP Time Seen by Provider: 01/18/21 21:30 Mode of Arrival: Ambulatory Sour
[2021-01-18 21:50] LABS: C-Reactive Protein 2.5 mg/L (0-4)
[2021-01-18 22:03] LABS: Procalcitonin 0.057 ng/mL (0.0-2.0)
[2021-01-18 22:06] LABS: Erythrocyte Sedimentation Rate 6 mm/hr (0-15)
--- NOTE | 2021-01-18 22:06 | ECG_ITS ---
APPROVED REPORT Exam: Resting ECG HR:75 bpm ECG Measurements Heart Rate 75 AXES NH 180 P 55 QRSd 108 QRS 55 QT 418 T 60 QTc 466 Conclusion Normal sinus rhythm Normal ECG Electronically signed by : Blaine Monet MD 01/20/2021 10:56:36
[2021-01-18 22:08] LABS: Troponin I < 0.01 ng/ml (0.00-0.034)
[2021-01-18 22:16] LABS: Hemoglobin A1C 8.8 % (4.0-6.0)
--- NOTE | 2021-01-18 22:25 | PC.NURSE ---
Pt recently to leave [place]. He states he feels fine now and I am not staying tonight . s/w pt, he will follow up with cardiology tomorrow.
[2021-01-18 23:07] VITALS: BP 139/78; PULSE 80; RESP 18; TEMP 36.7; O2SAT 98
== END 2021-01-18 23:08 | disposition left against medical advice (07) ==
PROVIDERS: Emergency Provider Emergency Medicine
DX: R07.2 Precordial pain (principal); Z20.822 Contact with and (suspected) exposure to COVID-19; E66.9 Obesity, unspecified; Z68.31 Body mass index [BMI] 31.0-31.9, adult; F17.210 Nicotine dependence, cigarettes, uncomplicated
CPT/HCPCS: 71046; 80053; 83036; 84145; 84484; 85025; 85651; 86140; 93005; 96365; 99283; C9803; U0003; U0005

== ENCOUNTER 2021-03-23 09:58 | Emergency (ER) | payer OTHER, SELFPAY ==
[2021-03-23 10:55] VITALS: BP 0/0; PULSE 0; RESP 0; TEMP -17.7; TEMP 0
== END 2021-03-23 11:00 | disposition left against medical advice (07) ==
LOC: UTC 10:02
PROVIDERS: Emergency Provider Nurse Practitioner; PCP Nurse Practitioner
DX: Z53.21 Procedure and treatment not carried out due to patient leaving prior to being seen by health care provider (principal)

== ENCOUNTER 2021-03-23 15:22 | Emergency (ER) | payer OTHER, SELFPAY ==
--- NOTE | 2021-03-23 15:45 | XR_ITS ---
PROCEDURE: XR SHOULDER LT MIN 2V CLINICAL INDICATION: PAIN COMPARISON: CR XR SHOULDER RT MIN 2V from 11/27/2019 FINDINGS: There is mild hypertrophic change at the acromioclavicular joint. Subacromial space is somewhat narrowed. Glenohumeral joint has an unremarkable appearance. No fracture or dislocation. No lytic or blastic change. IMPRESSION: Mild acromioclavicular arthropathy with subacromial narrowing otherwise negative Dictated by: Ed Horner MD 03/23/2021 16:15 Ed Horner MD in [place] 03/23/2021 16:15
[2021-03-23 16:15] VITALS: BP 148/91; PULSE 77; RESP 16; TEMP 37; O2SAT 97; BMI 31.2
--- NOTE | 2021-03-23 17:00 | HMH.EDUTC ---
[facility] [place] Disposition Clinical Impression: Muscle spasm Disposition: Home, Self-Care Condition on Discharge: Good Instructions: Cyclobenzaprine, Methylprednisolone, DI for Muscle Spasm Additional Instructions: Ice should be applied to the shoulder for 20 minutes once or twice a day Naproxen may be taken as-needed to relieve pain Take medication as prescribed Rest arm and allow time to heal Follow up with Family Doctor if pain continues for further evaluation and referral if needed Return if needed Straight to ER If any life threatening symptoms Continue taking Naproxen as prescribed *Not additional anti-inflammatory like Ibuprofen, motrin, aleve, advil with the above amount of Naproxen. You can still take Tylenol every 4 hours as needed if you need something else for pain *Ice 20 minutes every 2 hours for the first 48 hours after the initial injury followed by moist heat every 20 minutes 3-4 times a day to affected area *Muscle relaxer every 8 hours as needed for muscle spasms but remember, it WILL cause drowsiness You cannot take it and drive, operate machinery or care for small children. *Keep this area active, no movement leads to more stiffness, However take it easy and avoid heavy lifting pushing or pulling *Follow up with you family doctor if no improvement for further treatment Prescriptions: Cyclobenzaprine HCl [Flexeril 10mg tablet] 10 mg PO TID PRN #15 tab PRN Reason: Muscle Spasm Transmission Status: Received by [facility] # methylPREDNISolone [Medrol 4mg tab] 4 mg PO DIRECTED #21 tab Transmission Status: Received by [facility] # Referrals: Kyle Ignacio APRN [Primary Care Provider] - As needed Forms: Work/School Release Time of Disposition: 17:15 Medical Decision Making - Siemon Inquiry Pt receiving controlled substance: No Simeon was queried for this patient: No Vital Signs: 03/23/21 16:15 03/23/21 17:11 Temperature 98.6 F 98.6 F Temperature Source Oral Pulse Rate 77 Pulse Rate [Right Brachial] 77 Respiratory Rate 16 16 Blood Pressure 148/91 H Blood Pressure [Right Arm] 148/91 H Blood Pressure Mean [Right Arm] 110 Blood Pressure Source [Right Arm] Automatic Cuff Blood Pressure Position [Right Arm] Sitting 02 Sat by Pulse Oximetry 97 Oxygen Delivery Method Room Air Orders (Tests/Meds): ED MEDICATIONS Discontinued Medications Generic Name Dose Route Start Last Admin Trade Name Dickson PRN Reason Stop Dose Admin Methylprednisolone Sodium Succinate 125 mg 03/23/21 17:05 03/23/21 17:05 Methylprednisolone Sod Succ 125mg Vial IM 03/23/21 17:06 125 mg ONCE ONE Administration - Radiology Data #1 Image(s): Shoulder Image Reviewed: Yes I have reviewed radiologist's interpretation Mild acromioclavicular arthropathy with subacromial narrowing otherwise negative [facility] [place] HPI - General Stated complaint: pain in L shoulder X1wk Time Seen by Provider: 03/23/21 17:00 Mode of Arrival: Ambulatory Source of Information: Patient Limitations: No Limitations Description of Symptoms (Recalled from Triage Doc. by RN): PATIENT C/O LEFT SHOULDER PAIN X 1 WEEK. NO KNOWN INJURY HEENT Symptoms (Recalled from RN notes): No Resp Symptoms (Recalled from RN notes): No Skin Symptoms (Recalled from RN notes): No MS Symptoms (Recalled from RN notes): Yes Functional Status (Recalled from RN notes): WNL - History of Present Illness Provider Complaint: Patient states that he thinks he may have slept wrong about a week ago and when he woke up he was having tightness and spasm like pain in his left shoulder blade area that is worse with certain movements or when someone touches it States that today he was still feeling tight in the shoulder area like he is having spasms - Related Data Home Medications Medication Instructions Recorded Confirmed Naproxen 500 mg PO BID 03/23/21 03/23/21 Previous Rx's Medication Instructions Recorded Mell
[2021-03-23 17:11] VITALS: BP 148/91; PULSE 77; RESP 16; TEMP 37; O2SAT 97
== END 2021-03-23 17:27 | disposition home or self-care (01) ==
PROVIDERS: Emergency Provider Nurse Practitioner; PCP Nurse Practitioner Family
DX: M25.512 Pain in left shoulder (principal); M62.838 Other muscle spasm; F17.210 Nicotine dependence, cigarettes, uncomplicated
CPT/HCPCS: 73030; 96372; 99202; G0463

== ENCOUNTER 2021-04-03 09:48 | Emergency (ER) | payer OTHER, SELFPAY ==
[2021-04-03 11:00] VITALS: BP 153/88; PULSE 99; RESP 18; TEMP 37; O2SAT 95; BMI 30.4
--- NOTE | 2021-04-03 11:26 | HMH.EDUTC ---
[facility] [place] Impression: Hordeolum externum right lower eyelid, Tendinopathy of left shoulder Otalgia Qualifiers: Laterality: left Qualified Code(s): H92.02 - Otalgia, left ear Disposition: Home, Self-Care Condition on Discharge: Good Instructions: Shoulder Tendinopathy, DI for Hordeolum, DI for Shoulder Tendinopathy Additional Instructions: Use the eye drops as directed. Apply warm wet compresses to your right eye three or four times per day for the next several days to help the stye resolve. Follow up with Dr. Miller (orthopedics) regarding your shoulder pain. I put in a referral but you need to call his office and schedule an appointment. Follow up with your regular doctor. GO TO THE ER FOR ANY WORSENING SYMPTOMS OR CONCERNS Prescriptions: Sulfacetamide Sodium [Bleph-10] 1 drp EYE-BOTH Q3H 7 Days #1 ml Transmission Status: Pending to [facility] #[id number] methylPREDNISolone [Medrol] 4 mg PO DIRECTED 6 Days #21 packet Transmission Status: Pending to [facility] #[id number] Referrals: Kyle Ignacio APRN [Primary Care Provider] - Oscar Miller MD [Staff Physician] - Time of Disposition: 11:44 Medical Decision Making - Medical Records Medical records reviewed: No: I reviewed the patient's medical records. - Simeon Inquiry Pt receiving controlled substance: No Vital Signs: 04/03/21 11:00 Temperature 98.6 F Temperature Source Oral Pulse Rate [Right Brachial] 99 H Respiratory Rate 18 Blood Pressure [Right Arm] 153/88 H Blood Pressure Mean [Right Arm] 109 Blood Pressure Source [Right Arm] Automatic Cuff Blood Pressure Position [Right Arm] Sitting 02 Sat by Pulse Oximetry 95 Oxygen Delivery Method Room Air [facility] [place] - General Stated complaint: rt eye swollen, lt ear ache, lt shoulder pain Time Seen by Provider: 04/03/21 11:26 Mode of Arrival: Ambulatory Source of Information: Patient Limitations: No Limitations Description of Symptoms (Recalled from Triage Doc. by RN): PATIENT C/O RIGHT EYE SWELLING SINCE THIS MORNING AND LEFT EAR PAIN X 1 MONTH. ALSO REPORTS THAT HE WAS TREATED FOR LEFT SHOULDER PAIN 2 WEEKS AGO AND IS OUT OF THE MEDS HE WAS PRESCRIBED, STILL HAVING PAIN HEENT Symptoms (Recalled from RN notes): Yes Resp Symptoms (Recalled from RN notes): No Skin Symptoms (Recalled from RN notes): No MS Symptoms (Recalled from RN notes): Yes Functional Status (Recalled from RN notes): WNL - History of Present Illness Provider Complaint: He states that for the past 2 days he has had right eye irritation. He has had a stye before and that is what he thinks is going on now. He denies any injury. He denies any foriegn body. He denies any change in his vision. He also c/o left ear pain. He was afraid that he might have something in his ear. He denies any discharge, ringing or decreased hearing. He also c/o chronic left shoulder pain. He states that he has been here before for this same complaint and he was prescribed a medication that helped but he is out of it now. He would like to have a refill. - Related Data Home Medications Medication Instructions Recorded Confirmed Naproxen 500 mg PO BID 03/23/21 03/23/21 Previous Rx's Medication Instructions Recorded Cyclobenzaprine HCl [Flexeril 10mg 10 mg PO TID PRN #15 tab 03/23/21 tablet] methylPREDNISolone [Medrol 4mg 4 mg PO DIRECTED #21 tab 03/23/21 tab] Sulfacetamide Sodium [Bleph-10] 1 drp EYE-BOTH Q3H 7 Days #1 ml 04/03/21 methylPREDNISolone [Medrol] 4 mg PO DIRECTED 6 Days #21 04/03/21 packet Allergies Allergy/AdvReac Type Severity Reaction Status Date / Time No Known Allergies Allergy Verified 03/23/21 09:11 - Worker's Comp Is this a Worker's Comp case?: No [facility] History - Hepatitis A Screen Drug use history?: No High risk sexual behaviors?: No History of sexually transmitted infection?: No Currently employed?: No Childcare worker?: No Do you have indoor
[2021-04-03 11:48] VITALS: BP 153/88; PULSE 99; RESP 18; TEMP 37; O2SAT 95
== END 2021-04-03 11:54 | disposition home or self-care (01) ==
PROVIDERS: Emergency Provider Nurse Practitioner Family; PCP Nurse Practitioner Family
DX: H00.012 Hordeolum externum right lower eyelid (principal); M67.912 Unspecified disorder of synovium and tendon, left shoulder; F17.210 Nicotine dependence, cigarettes, uncomplicated
CPT/HCPCS: 99202; G0463

== ENCOUNTER 2021-08-26 16:30 | Emergency (ER) | payer OTHER, SELFPAY ==
--- NOTE | 2021-08-26 16:40 | XR_ITS ---
PROCEDURE INFORMATION: Exam: XR Chest Exam date and time: 08/26/2021 4:50 PM Age: 45 years old Clinical indication: Cough TECHNIQUE: Imaging protocol: XR of the chest. Views: 1 view. COMPARISON: CR XR CHEST 2V 01/18/2021 9:27 PM FINDINGS: Lungs: Mild peribronchial thickening right lung base. Findings compatible with bronchitis. Pleural spaces: Unremarkable. No pleural effusion. No pneumothorax. Heart/Mediastinum: Unremarkable. No cardiomegaly. Bones/joints: Unremarkable. IMPRESSION: Findings compatible with bronchitis right lung base.
--- NOTE | 2021-08-26 16:41 | CT_ITS ---
PROCEDURE INFORMATION: Exam: CT Head Without Contrast Exam date and time: 08/26/2021 4:50 PM Age: 45 years old Clinical indication: Other: Parasthesias TECHNIQUE: Imaging protocol: Computed tomography of the head without contrast. Radiation optimization: All CT scans at this facility use at least one of these dose optimization techniques: automated exposure control; mA and/or kV adjustment per patient size (includes targeted exams where dose is matched to clinical indication); or iterative reconstruction. COMPARISON: No relevant prior studies available. FINDINGS: Brain: No evidence of acute intracranial hemorrhage. Mild prominence of the periventricular white matter tracts. Prominence of the cortical sulci disproportionate to the patient's age. Findings are nonspecific however are compatible with changes of intracerebral volume loss. Cerebral ventricles: There is a 5 mm rounded hyperdense nodule in the region of the foramen of Monro at the roof of the 3rd ventricle. There is a small focus of increased density most consistent with calcification. The findings most likely correspond to a colloid cyst however the small focus of calcification is unusual. Findings demonstrated on series 3 image number 33, 34. There is no evidence of ventricular enlargement or displacement. Paranasal sinuses: Visualized sinuses are unremarkable. No fluid levels. Mastoid air cells: Visualized mastoid air cells are well aerated. Bones/joints: Unremarkable. No acute fracture. Soft tissues: See Cerebral ventricles finding. IMPRESSION: 1. 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 Superimposed punctate focus of calcification as described above. Consider follow-up with magnetic resonance imaging without and with contrast. 2. Nonspecific periventricular white matter tract changes and volume loss disproportionate to the patient's age. 3. Ethmoid air cell inflammatory changes.
[2021-08-26 16:43] VITALS: BMI 30.4
[2021-08-26 16:44] VITALS: BP 159/92; PULSE 95; RESP 17; TEMP 36.7; O2SAT 95; BMI 30.4
--- NOTE | 2021-08-26 16:49 | ECG_ITS ---
APPROVED REPORT Exam: Resting ECG HR:93 bpm ECG Measurements Heart Rate 93 AXES TX 172 P 55 QRSd 109 QRS 48 QT 378 T 74 QTc 428 Conclusion SINUS RHYTHM NORMAL ECG UNCONFIRMED REPORT Electronically signed by : Blaine Monet MD 08/27/2021 21:10:43
[2021-08-26 16:54] LABS: Basophils # 0.1 K/mm3 (0-0.2); Basophils % 1.2 % (0.1-2.0); Eosinophils # 0.2 K/mm3 (0.0-0.4); Eosinophils % 2.5 % (0.1-12.0); Lymphocytes # 2.2 K/mm3 (0.7-4.5); Lymphocytes % 27.2 % (10-50); Mean Corpuscular HGB Conc 33.9 g/dL (31.8-35.4); Mean Corpuscular Hemoglobin 32.1 pg (27.0-31.2); Mean Corpuscular Volume 94.5 fl (80-94); Mean Platelet Volume 8.4 fl (7.4-10.4); Monocytes # 0.3 K/mm3 (0.1-1.0); Neutrophils # 5.2 K/mm3 (1.8-7.8); Neutrophils % 65.1 % (37.0-80.0); Platelet Count 237 K/mm3 (142-424); Red Blood Count 5.29 M/mm3 (4.60-6.20); Red Cell Distribution Width 13.6 % (11.5-17.5); White Blood Count 7.9 K/mm3 (4.8-10.8)
[2021-08-26 17:02] LABS: Chloride 96 mmol/L (98-107); Potassium 3.7 mmoL/L (3.5-5.1); Sodium 130 mmol/L (136-145)
[2021-08-26 17:04] LABS: Alanine Aminotransferase 16 U/L (12-78); Aspartate Amino Transferase 21 U/L (17-59); Blood Urea Nitrogen 4 mg/dl (9-20); Creatinine Clearance Estimated 166 mL/min (50-200); Estimated Glomerular Filt Rate 104 ml/min (>60); GFR (African American) 126 ML/MIN (>60)
[2021-08-26 17:05] LABS: Albumin/Globulin Ratio 1.4 (1.1-1.8); Alkaline Phosphatase 77 U/L (38-126); Anion Gap 13.7 mEq/L (5-15); Bilirubin,Total 0.5 mg/dl (0.2-1.3); Carbon Dioxide 24 mmol/L (22.0-30.0); Globulin 2.9 g/dL (1.3-3.2); Glucose 309 mg/dl (74-100); Total Protein,Serum 6.9 g/dl (6.3-8.2)
[2021-08-26 17:13] LABS: NT Pro Brain Natriuretic Pep. 41.8 pg/mL (0-125)
[2021-08-26 17:19] LABS: Troponin I < 0.01 ng/ml (0.00-0.034)
--- NOTE | 2021-08-26 17:21 | HMH.EDGENADL ---
ED Disposition Clinical Impression: Hyperglycemia, Right leg paresthesias, Cyst of brain Disposition: Home, Self-Care Condition on Discharge: Fair Instructions: DI for Hyperglycemia -- Adult Referrals: Kyle Ignacio APRN [Primary Care Provider] - Obie Silva [Referring] - - Critical Care Critical Care Time: No Attestation: On 08/26/21, the high probability of a clinically significant, sudden or life threatening deterioration of the following system(s) required my full and direct attention, intervention and personal management. The time I documented below is in addition to time spent performing reported procedures but includes the following listed in this critical care notation. Medical Decision Making - Medical Records Medical records reviewed: Yes: I reviewed the patient's medical records. - Simeon Inquiry Pt receiving controlled substance: No Vital Signs: 08/26/21 16:44 08/26/21 18:29 Temperature 98.0 F Temperature Source Oral Pulse Rate 72 Pulse Rate [Left Radial] 95 H Respiratory Rate 17 Blood Pressure 142/89 H Blood Pressure [Right Arm] 159/92 H Blood Pressure Mean 98 Blood Pressure Mean [Right Arm] 114 02 Sat by Pulse Oximetry 95 99 Oxygen Delivery Method Room Air Room Air - Lab Data Lab Results 08/26/21 16:36: WBC 7.9, RBC 5.29, Hgb 17.0, Hct 50.0, MCV 94.5 H, MCH 32.1 H, MCHC 33.9, RDW 13.6, Plt Count 237, MPV 8.4, Neut % (Auto) 65.1, Lymph % (Auto) 27.2, Navarro % (Auto) 4.0, Eos % (Auto) 2.5, Baso % (Auto) 1.2, Neut # (Auto) 5.2, Lymph # (Auto) 2.2, Navarro # (Auto) 0.3, Eos # (Auto) 0.2, Baso # (Auto) 0.1 08/26/21 16:36: Sodium 130 L, Potassium 3.7, Chloride 96 L, Carbon Dioxide 24, Anion Gap 13.7, BUN 4 L, Creatinine 0.80, Estimated Creat Clear 166, Estimated GFR 104, Est GFR ( Amer) 126, Glucose 309 H, Calcium 9.0, Total Bilirubin 0.5, AST 21, ALT 16, Alkaline Phosphatase 77, Troponin I < 0.01, NT-Pro-B Natriuret Pep 41.8, Total Protein 6.9, Albumin 4.0, Globulin 2.9, Albumin/Globulin Ratio 1.4 Result diagrams: 08/26/21 16:36 08/26/21 16:36 Orders (Tests/Meds): ED MEDICATIONS Generic Name Dose Route Start Last Admin Trade Name Freq PRN Reason Stop Dose Admin Lactated Ringer's 1,000 mls @ 999 mls/hr 08/26/21 18:30 08/26/21 18:32 Lactated Ringer's 1000 Ml Bag IV 08/26/21 19:30 999 mls/hr .Q1H1M DEANNA Administration ORDERS Category Date Time Status Troponin I Q3H Lab 08/26/21 19:45 Ordered Troponin I Q3H Lab 08/26/21 22:45 Ordered - Radiology Data #1 Image(s): Chest Image Reviewed: Yes I reviewed the patient's radiology results, Yes I reviewed the patient's radiology image, Yes I have reviewed radiologist's interpretation IMPRESSION: Findings compatible with bronchitis right lung base. - CT Data CT Scan: Head Time Received: 18:[address] Reviewed: Yes: I have reviewed the patient's CT results, I have viewed the radiologist's interpretation Findings Narrative: IMPRESSION: 1. 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 Superimposed punctate focus of calcification as described above. Consider follow-up with magnetic resonance imaging without and with contrast. 2. Nonspecific periventricular white matter tract changes and volume loss disproportionate to the patient's age. 3. Ethmoid air cell inflammatory changes. - ECG Data Tracing #1 I reviewed this ECG and interpreted as documented below: ECG initial impression date: 08/26/21 ECG initial impression time: 16:49 ECG normal with no acute: arrhythmias, ischemia, conduction abnormalities, chamber hypertrophy Normal Sinus Rhythm: Yes - Reevaluation(s) Time: 18:34 Reevaluation #1: On reevaluation, patient's symptoms have resolved. Does have some hyperglycemia as well as some abnormal findings on CT. He has a small cyst. I did explain the patient that I would like to have him be evaluated by neurosurgery gi
[2021-08-26 18:29] VITALS: BP 142/89; PULSE 72; O2SAT 99
--- NOTE | 2021-08-26 18:29 | PC.NURSE ---
in with pt.
--- NOTE | 2021-08-26 18:29 | PC.NURSE ---
ER at discussing pt results and POC
[2021-08-26 19:10] VITALS: BP 150/89; PULSE 76; RESP 18; TEMP 36.7; O2SAT 97
== END 2021-08-26 19:24 | disposition home or self-care (01) ==
PROVIDERS: Emergency Provider Emergency Medicine; PCP Nurse Practitioner Family
DX: G93.0 Cerebral cysts (principal); R73.9 Hyperglycemia, unspecified; R20.2 Paresthesia of skin; R51.9 Headache, unspecified; F17.210 Nicotine dependence, cigarettes, uncomplicated; R29.700 NIHSS score 0; Z79.899 Other long term (current) drug therapy
CPT/HCPCS: 70450; 71045; 80053; 83880; 84484; 85025; 93005; 96360; 96375; 99284

== ENCOUNTER → 2021-08-31 11:52 | Outpatient (CLI) | payer OTHER, SELFPAY ==
[2021-08-31 16:21] LABS: Alanine Aminotransferase 23 U/L (12-78); Albumin Level 4.2 g/dl (3.5-5.0); Albumin/Globulin Ratio 1.6 (1.1-1.8); Alkaline Phosphatase 80 U/L (38-126); Anion Gap 14.8 mEq/L (5-15); Aspartate Amino Transferase 25 U/L (17-59); Basophils # 0.2 K/mm3 (0-0.2); Basophils % 1.7 % (0.1-2.0); Bilirubin,Total 0.4 mg/dl (0.2-1.3); Blood Urea Nitrogen 6 mg/dl (9-20); Calcium 9.2 mg/dl (8.4-10.2); Carbon Dioxide 24 mmol/L (22.0-30.0); Chloride 96 mmol/L (98-107); Chol/HDL Ratio 8.7 (1-3.5); Cholesterol 235 mg/dl (140-200); Eosinophils # 0.2 K/mm3 (0.0-0.4); Eosinophils % 2.2 % (0.1-12.0); Estimated Glomerular Filt Rate 104 ml/min (>60); GFR (African American) 126 ML/MIN (>60); Globulin 2.6 g/dL (1.3-3.2); Glucose 355 mg/dl (74-100); HDL Cholesterol 27 mg/dl (40-60); Hematocrit 53.4 % (42.0-52.0); Hemoglobin 17.9 g/dL (14.1-18.0); Mean Corpuscular HGB Conc 33.4 g/dL (31.8-35.4); Mean Corpuscular Hemoglobin 32.1 pg (27.0-31.2); Mean Platelet Volume 10.1 fl (7.4-10.4); Monocytes # 0.5 K/mm3 (0.1-1.0); Monocytes % 5.3 % (1.7-9.3); Neutrophils # 6.2 K/mm3 (1.8-7.8); Neutrophils % 68.7 % (37.0-80.0); Platelet Count 251 K/mm3 (142-424); Potassium 3.8 mmoL/L (3.5-5.1); Red Blood Count 5.57 M/mm3 (4.60-6.20); Red Cell Distribution Width 13.7 % (11.5-17.5); Sodium 131 mmol/L (136-145); Total Protein,Serum 6.8 g/dl (6.3-8.2); Triglycerides 398 mg/dl (30-150); VLDL Cholesterol 80 mg/dL (0-40); White Blood Count 9.1 K/mm3 (4.8-10.8)
[2021-08-31 16:41] LABS: 25-OH Vitamin D, Total 16.3 ng/mL (30-100)
[2021-08-31 16:53] LABS: Prostate Specific Ag Screen 0.4 ng/ml (0.0-4.0); Thyroid Stimulating Hormone 1.31 uIU/mL (0.465-4.68)
[2021-08-31 17:03] LABS: Hemoglobin A1C 11.3 % (4.0-6.0)
[2021-08-31 17:29] LABS: Vitamin B12 222 pg/mL (239-931)
[2021-08-31 17:32] LABS: Folate 6.29 ng/mL
== END ==
PROVIDERS: PCP Physician Assistant; Visit Provider Physician Assistant
DX: R20.0 Anesthesia of skin (principal); R20.2 Paresthesia of skin; R73.09 Other abnormal glucose; E55.9 Vitamin D deficiency, unspecified; Z79.84 Long term (current) use of oral hypoglycemic drugs; Z12.5 Encounter for screening for malignant neoplasm of prostate
CPT/HCPCS: 80053; 80061; 82306; 82607; 82746; 83036; 84443; 85025; G0103

== ENCOUNTER → 2021-09-10 12:58 | Outpatient (CLI) | payer OTHER, SELFPAY ==
--- NOTE | 2021-09-10 12:58 | MR_ITS ---
FINAL REPORT TECHNIQUE: Multiplanar and multisequence imaging of the brain was obtained before and after contrast administration. CLINICAL HISTORY: colloid cyst. tingling on right side of body. abnormal ct scan. headache. 20ml prohance given. COMPARISON: CT dated August 26, 2021 FINDINGS: The gyri and sulci are within normal limits for age. There is no mass effect or midline shift. There is nonspecific periventricular and subcortical white matter change greater than expected for patient age. The small hyperdense focus seen on recent CT is less well appreciated on MRI. This is best seen on FLAIR imaging where it is isointense to brain parenchyma and measures approximately 6 mm. No hydrocephalus. The cerebellum and brainstem have a normal appearance. There are no areas of restricted diffusion on diffusion weighted images to suggest acute infarct. There is mild mucoperiosteal thickening in the ethmoid air cells and frontal sinuses. There is a 5 mm focus of contrast enhancement within the left thalamus corresponding to T2 abnormality on FLAIR imaging. There are no other foci of contrast enhancement. IMPRESSION: White matter changes greater than expected for patient age which could be due to demyelinating disease. Left thalamic enhancement could represent an active focus of demyelination. Colloid cyst seen on recent CT not as well appreciated. This can be followed up with CT if indicated. Reviewed, Interpreted and Dictated by Ana Bolton MD Transcribed by Anish Benz Authenticated by Ana oBlton MD on 09/10/2021 02:56:00 PM [facility]
== END ==
PROVIDERS: PCP Physician Assistant; Visit Provider Physician Assistant
DX: G93.0 Cerebral cysts (principal)
CPT/HCPCS: 70553; A9576

== ENCOUNTER 2022-02-28 19:49 | Emergency (ER) | payer OTHER, SELFPAY ==
[2022-02-28 19:49] VITALS: BP 146/91; PULSE 88; RESP 18; TEMP 36.6; O2SAT 96; BMI 31.5
[2022-02-28 19:50] VITALS: BMI 31.5
--- NOTE | 2022-02-28 20:04 | ECG_ITS ---
APPROVED REPORT Exam: Resting ECG HR:88 bpm ECG Measurements Heart Rate 88 AXES VT 185 P 45 QRSd 104 QRS 25 QT 369 T 76 QTc 415 Conclusion SINUS RHYTHM POSSIBLE LEFT ATRIAL ENLARGEMENT [-0.1mV P-WAVE IN V1/V2] NONSPECIFIC ST & T-WAVE ABNORMALITY BORDERLINE ECG UNCONFIRMED REPORT Electronically signed by : Blaine Monet MD 03/01/2022 21:12:05
--- NOTE | 2022-02-28 20:11 | XR_ITS ---
PROCEDURE INFORMATION: Exam: XR Chest Exam date and time: 02/28/2022 8:11 PM Age: 46 years old Clinical indication: Sternal or substernal pain; Additional info: Chest TECHNIQUE: Imaging protocol: Radiologic exam of the chest. Views: 2 views. COMPARISON: CR XR CHEST PORTABLE 08/26/2021 4:50 PM FINDINGS: Lungs: Unremarkable. No consolidation. Pleural spaces: Unremarkable. No pleural effusion. No pneumothorax. Heart/Mediastinum: Unremarkable. No cardiomegaly. Bones/joints: Unremarkable. IMPRESSION: No acute findings.
[2022-02-28 20:23] LABS: Basophils # 0.2 K/mm3 (0-0.2); Basophils % 1.4 % (0.1-2.0); Eosinophils # 0.3 K/mm3 (0.0-0.4); Eosinophils % 2.4 % (0.1-12.0); Hematocrit 48.5 % (42.0-52.0); Lymphocytes # 2.8 K/mm3 (0.7-4.5); Lymphocytes % 25.7 % (10-50); Mean Corpuscular Hemoglobin 31.4 pg (27.0-31.2); Mean Corpuscular Volume 95.2 fl (80-94); Mean Platelet Volume 8.9 fl (7.4-10.4); Monocytes # 0.6 K/mm3 (0.1-1.0); Monocytes % 5.6 % (1.7-9.3); Platelet Count 259 K/mm3 (142-424); Red Blood Count 5.09 M/mm3 (4.60-6.20); Red Cell Distribution Width 14.1 % (11.5-17.5); White Blood Count 10.7 K/mm3 (4.8-10.8)
[2022-02-28 20:28] LABS: Alanine Aminotransferase 23 U/L (12-78); Albumin Level 4.3 g/dl (3.5-5.0); Albumin/Globulin Ratio 1.5 (1.1-1.8); Alkaline Phosphatase 78 U/L (38-126); Anion Gap 17.9 mEq/L (5-15); Aspartate Amino Transferase 28 U/L (17-59); Bilirubin,Total 0.5 mg/dl (0.2-1.3); Blood Urea Nitrogen 6 mg/dl (9-20); Calcium 9.1 mg/dl (8.4-10.2); Carbon Dioxide 25 mmol/L (22.0-30.0); Chloride 94 mmol/L (98-107); Creatinine Clearance Estimated 166 mL/min (50-200); Estimated Glomerular Filt Rate 104 ml/min (>60); GFR (African American) 125 ML/MIN (>60); Globulin 2.8 g/dL (1.3-3.2); Glucose 263 mg/dl (74-100); Potassium 3.9 mmoL/L (3.5-5.1); Sodium 133 mmol/L (136-145); Total Protein,Serum 7.1 g/dl (6.3-8.2)
[2022-02-28 20:30] VITALS: BP 121/77; PULSE 88; RESP 11; O2SAT 96
[2022-02-28 20:39] LABS: Troponin I 0.04 ng/ml (0.00-0.034)
--- NOTE | 2022-02-28 21:01 | PC.NURSE ---
Dr. Gold at
--- NOTE | 2022-02-28 21:07 | HMH.EDCP ---
Discharge Plan Disposition Patient Disposition: Left Against Medical Advice Chief Complaint: Chest Pain Prescriptions Prescriptions: No Action losartan 50 mg tablet 50 mg PO DAILY Qty: 90 3RF atorvastatin [Lipitor] 10 mg tablet 10 mg PO QHS 90 Days Qty: 90 0RF (DME) blood-glucose meter [Blood Glucose Monitoring] Kit See Rx Instructions .ROUTE .MEDSUPPLY Qty: 1 0RF Rx Instructions: As directed (DME) Blood Glucose Test Strip See Rx Instructions .Route Qty: 50 2RF Rx Instructions: As directed (DME) lancets [Acti-Sree Lancets] 28 gauge misc See Rx Instructions .Route Qty: 100 1RF Rx Instructions: As directed alcohol swabs [Alcohol Pads] Pads, Medicated 1 pad TP BID Qty: 100 1RF ergocalciferol (vitamin D2) 1,250 mcg (50,000 unit) capsule 1,250 mcg PO WEEKLY Qty: 14 3RF cholecalciferol (vitamin D3) 25 mcg (1,000 unit) capsule 25 mcg PO DAILY Qty: 90 3RF pregabalin [Lyrica] 50 mg capsule 50 mg PO BID Qty: 60 0RF gabapentin [Neurontin] 300 mg capsule 300 mg PO BID Qty: 60 0RF metformin 500 mg tablet extended release 24 hr 500 mg PO DAILY Qty: 30 2RF glipizide 5 mg tablet extended release 24 hr 5 mg PO DAILY Qty: 30 2RF aspirin [Adult Aspirin Regimen] 81 mg tablet,delayed release (DR/EC) 81 mg PO DAILY Qty: 30 2RF Referrals Follow up/Referrals: Fide Zazueta PA [Primary Care Provider] - See instructions Clinical Impressions Clinical Impression: Angina pectoris, unstable, Tobacco use, Obesity (BMI 30-39.9), Diabetes mellitus Discharge ED Provider: Bandar Gold Chest Pain HPI General Chief Complaint: Chest Pain Stated Complaint: chest pain Time Seen by Provider: 02/28/22 20:10 Mode of Arrival: Ambulatory Source of Information: Patient, Spouse and Medical Record Limitations: No Limitations Description of Symptoms (Recalled from ER Triage Doc. by RN): pt c/o chest pain. pt states that he has pain in the left chest wall that radiates down to the middle of the left arm the pt states he has had the chest pain for 3 days and come in to night because of the arm pain the pt also states that he hasnt had his losartan in a few weeks and took it at 630pm. pt states that he did get some relief from that but it didnt take it all History of Present Illness HPI narrative: progressive chest pain over the last few days with relief with ntg- no known ht dis and has sig risk factors MD complaint: chest pain indicative of cardiac Onset (ago): day(s) Duration: now resolved Activity at onset: during rest Pain location: left chest Severity: moderate Quality: sharp Pain radiation: LUE Relieving factors: nitroglycerin Risk Factors for CAD: Hypertension, Family Hx of CAD, Diabetes and Smoking Treatments prior to or on arrival for Cardiac Chest Pain: none ESTEVAN Score for Non-Stemi Age of Patient: 40-49 years old Heart Rate: 70-89 bpm Systolic Blood Pressure: 120-139 mmhg Serum Creatinine: 0.80-1.19 mg/dl CHF Killip Class: I-No CHF Other Risk Factors: Elevated Cardiac Enzymes or Biomarkers Non-Stemi Risk Score: 89 Related Data Previous Rx's Medication Instructions Recorded alcohol swabs (Alcohol Pads) 1 pad topical BID #100 ea 08/31/21 atorvastatin 10 mg tablet (Lipitor) 10 mg PO QHS 90 days #90 tabs 08/31/21 blood sugar diagnostic (Blood #50 ea 08/31/21 Glucose Test strips) blood-glucose meter (Blood Glucose #1 08/31/21 Monitoring kit) lancets 28 gauge (Acti-Sree #100 ea 08/31/21 Lancets) losartan 50 mg tablet 50 mg PO DAILY #90 tabs 08/31/21 cholecalciferol (vitamin D3) 25 25 mcg PO DAILY #90 caps 09/01/21 mcg (1,000 unit) capsule ergocalciferol (vitamin D2) 1,250 1,250 mcg PO WEEKLY #14 caps 09/01/21 mcg (50,000 unit) capsule pregabalin 50 mg capsule (Lyrica) 50 mg PO BID #60 caps 09/10/21 gabapentin 300 mg capsule 300 mg PO BID #60 caps 10/07/21 (Neurontin) aspirin 81 mg tablet,delayed 81 mg PO DAILY #30 tabs
[2022-02-28 21:29] LABS: Chol/HDL Ratio 7.7 (1-3.5); Cholesterol 231 mg/dl (140-200); HDL Cholesterol 30 mg/dl (40-60)
--- NOTE | 2022-02-28 21:29 | PC.NURSE ---
MD was talking w/ pt and he wanted to leave, he did not want to stay in the hospital. He understands deterioration of medical condition, , or arrhythmia. He signed AMA form.
[2022-02-28 21:30] LABS: Triglycerides 437 mg/dl (30-150)
[2022-02-28 21:40] LABS: Direct LDL Cholesterol 118.62 mg/dL (100-129)
[2022-02-28 22:15] VITALS: BP 121/77; PULSE 88; RESP 16; TEMP 36.7; O2SAT 96
== END 2022-02-28 22:15 | disposition left against medical advice (07) ==
PROVIDERS: Emergency Provider Emergency Medicine; PCP Physician Assistant
DX: I20.0 Unstable angina (principal); E11.9 Type 2 diabetes mellitus without complications; E66.9 Obesity, unspecified; Z72.0 Tobacco use; I10 Essential (primary) hypertension
CPT/HCPCS: 71046; 80053; 80061; 83036; 84484; 85025; 93005; 99284

== ENCOUNTER → 2022-03-01 09:54 | Outpatient (CLI) | payer OTHER, SELFPAY | PROVIDERS: PCP Physician Assistant; Visit Provider Physician Assistant | DX: R07.9 Chest pain, unspecified (principal) ==

== ENCOUNTER 2022-03-01 10:16 | Day surgery (SDC) | payer OTHER, SELFPAY ==
[2022-03-01] VITALS (15 sets, daily range): BP systolic 101–161; BP diastolic 54–93; PULSE 71–84; RESP 15–20; O2SAT 95–100; BMI 30.4
--- NOTE | 2022-03-01 09:56 | IR_ITS ---
APPROVED REPORT Patient Location: Outpatient Electrical Engineering Technician: EMMY Sanders RT (R) PROCEDURES Left heart catheterization Left ventriculogram Selective coronary angiogram Intravascular lithotripsy to the proximal LAD Intravascular ultrasound of the proximal LAD Drug-eluting stent deployment to the proximal LAD INDICATION Unstable angina, Coronary artery disease, Elevated troponin/acute coronary syndrome Informed consent was obtained prior to the procedure. COMPLICATIONS None Estimated Blood Loss: Less than 10 mls TECHNIQUE One percent lidocaine used to anesthetize the right anterior aspect of the wrist. The right radial artery was accessed via the Seldinger technique. A 6 [place] sheath was placed in the right radial artery. 2.5 mg of verapamil, 800 mcg of nitroglycerin, 1mg Lidocaine and 5000 U Heparin were given through the arterial sheath. The papa catheter was also used to perform selective coronary angiogram. At the end of the diagnostic angiogram therapeutic heparin was administered giving a therapeutic ACT and the guide catheter was placed in the left main artery with unsuccessful cannulation of the left main artery for guide support. An Vastari left guide was then exchanged and inserted in the left main artery followed by a Choice PT extra-support wire. A 4 mm x 18 mm resolute Spenser stent was deployed at 20 kenton reducing the critical stenosis. A 4.5 x 8 mm balloon was then placed back into the stent and deployed at 20 and 24 kenton. Intravascular ultrasound probe was then passed through which demonstrated persistent calcified lesion which was not completely expanded. A 4 mm x 12 mm lithotripsy balloon was then delivered into the proximal and midportion of the stent and deployed at 6 8 and 10 kenton delivering 8 different sequences of 10 lithotripsy pulsations. Following this a 5 mm x 12 mm noncompliant balloon was placed in the proximal portion and deployed at 18 kenton to further post dilate. Following this intravascular ultrasound probe was reinserted which demonstrated improved lumen with better expansion of the stent with improved lumen size. At the end of the procedure the apparatus was removed the sheath was removed good hemostasis was achieved using TR banding patient was transferred to the postop putting in stable condition ANGIOGRAPHIC RESULTS The left main artery Normal The left anterior descending artery Has a proximal calcified concentric greater than 90% stenosis followed by additional calcified 30% mid vessel stenoses The circumflex artery Is co-dominant and gives rise to large ramus intermedius which has a proximal eccentric 30% stenosis with mid vessel 40 to 50% stenosis. The circumflex artery is a large-caliber vessel and has a proximal eccentric 40 to 50% stenosis with additional 2030% stenoses in the terminal obtuse marginal artery The right coronary artery Is a codominant vessel and has proximal calcified 30 and 40% proximal mid vessel and distal stenoses The GUTIERREZ ventriculogram reveals Not performed The left ventricular end-diastolic pressure Not measured IMPRESSION Critical proximal LAD disease as described above with successful intravascular lithotripsy followed by successful drug-eluting stent deployment reducing the critical stenosis to less than 10% Diffuse calcified moderate coronary artery disease as described above PLAN 1. Brilinta 90 twice daily plus aspirin 81 mg daily 2. Add bisoprolol 5 mg daily 3. Add Lipitor 40 mg daily with a goal LDL less than 55 4. Avoidance of tobacco products 5. Cardiac rehabilitation 6. Aggressive risk factor modification 7. Cardiac rehabilitation Electronically signed by : Obie Torres MD 03/01/2022 13:31:37
--- NOTE | 2022-03-01 10:36 | SUR.PREOP ---
Pt states he is supposed to take medications daily but has not taken them for months, is unaware of what the medications are or the dosages
[2022-03-01 15:24] LABS: CATHL Activated Clotting Time > 400 SEC (74-125)
--- NOTE | 2022-03-01 15:55 | HMH.PHACL ---
PHA Jumbo Operator Discharge Med Yellow Pages Space Salesperson: Kwame Quijano has received discharge medication counseling on the following medications: MD STARTING ASPIRIN 81 MG DAILY, ATORVASTATIN 40 MG HS, BISOPROLOL 5 MG DAILY, AND BRILINTA 90 MG BID. MD NOT WANTING TO START GONZALES/ARB AT THIS TIME.
== END 2022-03-01 17:23 | disposition home or self-care (01) ==
PROVIDERS: PCP Physician Assistant; Visit Provider Internal Medicine
DX: I25.110 Atherosclerotic heart disease of native coronary artery with unstable angina pectoris (principal); E11.9 Type 2 diabetes mellitus without complications; F17.210 Nicotine dependence, cigarettes, uncomplicated; I21.4 Non-ST elevation (NSTEMI) myocardial infarction; Z79.899 Other long term (current) drug therapy; I10 Essential (primary) hypertension
CPT/HCPCS: 0715T; 85347; 92928; 92978; 99152; 99153; C1725; C1761; C1769; C1876; C9600; J1644; Q9967

== ENCOUNTER → 2022-03-10 13:41 | Outpatient (CLI) | payer OTHER, SELFPAY ==
[2022-03-10 14:26] LABS: Basophils # 0.1 K/mm3 (0-0.2); Basophils % 1.1 % (0.1-2.0); Eosinophils # 0.2 K/mm3 (0.0-0.4); Eosinophils % 2.5 % (0.1-12.0); Hemoglobin 16.6 g/dL (14.1-18.0); Lymphocytes # 2.4 K/mm3 (0.7-4.5); Lymphocytes % 28.3 % (10-50); Mean Corpuscular HGB Conc 32.5 g/dL (31.8-35.4); Mean Corpuscular Hemoglobin 31.3 pg (27.0-31.2); Mean Corpuscular Volume 96.4 fl (80-94); Mean Platelet Volume 8.4 fl (7.4-10.4); Monocytes # 0.5 K/mm3 (0.1-1.0); Monocytes % 5.3 % (1.7-9.3); Neutrophils # 5.4 K/mm3 (1.8-7.8); Neutrophils % 62.9 % (37.0-80.0); Platelet Count 307 K/mm3 (142-424); Red Blood Count 5.29 M/mm3 (4.60-6.20); Red Cell Distribution Width 13.7 % (11.5-17.5); White Blood Count 8.5 K/mm3 (4.8-10.8)
[2022-03-10 14:53] LABS: Anion Gap 19.7 mEq/L (5-15); Blood Urea Nitrogen 11 mg/dl (9-20); Calcium 10.1 mg/dl (8.4-10.2); Carbon Dioxide 29 mmol/L (22.0-30.0); Chloride 88 mmol/L (98-107); Estimated Glomerular Filt Rate 80 ml/min (>60); GFR (African American) 97 ML/MIN (>60); Glucose 380 mg/dl (74-100); Potassium 4.7 mmoL/L (3.5-5.1); Sodium 132 mmol/L (136-145)
== END ==
PROVIDERS: PCP Physician Assistant; Visit Provider Internal Medicine
DX: I25.10 Atherosclerotic heart disease of native coronary artery without angina pectoris (principal); Z95.5 Presence of coronary angioplasty implant and graft
CPT/HCPCS: 36415; 80048; 85025

== ENCOUNTER → 2022-03-15 14:45 | Outpatient (CLI) | payer OTHER, SELFPAY ==
[2022-03-15 18:26] LABS: Basophils # 0.1 K/mm3 (0-0.2); Basophils % 0.9 % (0.1-2.0); Eosinophils # 0.3 K/mm3 (0.0-0.4); Eosinophils % 2.8 % (0.1-12.0); Hematocrit 49.3 % (42.0-52.0); Hemoglobin 16.1 g/dL (14.1-18.0); Lymphocytes # 2.4 K/mm3 (0.7-4.5); Lymphocytes % 26.4 % (10-50); Mean Corpuscular HGB Conc 32.7 g/dL (31.8-35.4); Mean Corpuscular Hemoglobin 31.6 pg (27.0-31.2); Mean Corpuscular Volume 96.7 fl (80-94); Mean Platelet Volume 8.6 fl (7.4-10.4); Monocytes # 0.4 K/mm3 (0.1-1.0); Monocytes % 4.3 % (1.7-9.3); Neutrophils # 5.8 K/mm3 (1.8-7.8); Neutrophils % 65.5 % (37.0-80.0); Platelet Count 315 K/mm3 (142-424); Red Cell Distribution Width 13.5 % (11.5-17.5); White Blood Count 8.9 K/mm3 (4.8-10.8)
[2022-03-15 18:31] LABS: Alanine Aminotransferase 20 U/L (12-78); Albumin Level 4.7 g/dl (3.5-5.0); Albumin/Globulin Ratio 1.7 (1.1-1.8); Alkaline Phosphatase 95 U/L (38-126); Aspartate Amino Transferase 24 U/L (17-59); Bilirubin,Total 0.8 mg/dl (0.2-1.3); Blood Urea Nitrogen 12 mg/dl (9-20); Calcium 9.8 mg/dl (8.4-10.2); Carbon Dioxide 28 mmol/L (22.0-30.0); Chloride 87 mmol/L (98-107); Chol/HDL Ratio 5.8 (1-3.5); Cholesterol 185 mg/dl (140-200); Estimated Glomerular Filt Rate 104 ml/min (>60); GFR (African American) 125 ML/MIN (>60); Globulin 2.7 g/dL (1.3-3.2); Glucose 319 mg/dl (74-100); HDL Cholesterol 32 mg/dl (40-60); Sodium 130 mmol/L (136-145); Total Protein,Serum 7.4 g/dl (6.3-8.2); Triglycerides 379 mg/dl (30-150); VLDL Cholesterol 76 mg/dL (0-40)
[2022-03-15 18:48] LABS: 25-OH Vitamin D, Total 16.9 ng/mL (30-100)
[2022-03-17 09:37] LABS: Testosterone,Total 533 ng/dL (264-916)
== END ==
PROVIDERS: PCP Physician Assistant; Visit Provider Physician Assistant
DX: E11.9 Type 2 diabetes mellitus without complications (principal); E55.9 Vitamin D deficiency, unspecified; Z79.84 Long term (current) use of oral hypoglycemic drugs
CPT/HCPCS: 80053; 80061; 82306; 83036; 84403; 84443; 85025

== ENCOUNTER → 2022-04-13 08:57 | Outpatient (CLI) | payer OTHER, SELFPAY ==
--- NOTE | 2022-04-13 08:58 | MR_ITS ---
FINAL REPORT CLINICAL HISTORY: Follow up, cyst. 20ML PROHANCE GIVEN. COMPARISON: September 10, 2021 FINDINGS: Multiplanar MR imaging of the brain was performed without and with contrast. Again noted are multiple foci of abnormal T2 signal in the cerebral white matter which are stable in appearance and may represent demyelination, moderate chronic ischemic/gliotic changes or changes of vasculitis. No new white matter abnormality is identified. The focus of contrast enhancement in the left thalamus has resolved. No new abnormal contrast enhancement is identified. There is no evidence of intracranial hemorrhage or mass. No abnormal extra-axial fluid collection is seen. The ventricular size is within normal limits. There is no evidence of shift of the midline structures. The posterior fossa and brainstem have an unremarkable appearance. No area of abnormal restricted diffusion is identified. Normal major vessel vascular flow voids are noted. IMPRESSION: Stable white matter signal abnormality which may represent demyelination, moderate chronic ischemic/gliotic changes or changes of vasculitis. Interval resolution of the left thalamus contrast enhancement with no new abnormal contrast enhancement. Reviewed, Interpreted and Dictated by Venkata Winslow III, MD Transcribed by Maria Isabel Pruett Authenticated and [facility]
== END ==
PROVIDERS: PCP Physician Assistant; Visit Provider Physician Assistant
DX: G93.0 Cerebral cysts (principal)
CPT/HCPCS: 70553; A9576

== ENCOUNTER → 2022-05-20 06:48 | Outpatient (CLI) | payer OTHER, SELFPAY ==
--- NOTE | 2022-05-20 | CA_ITS ---
APPROVED REPORT Exam: Pharmacologic Technologist: Nancy Santo, Ht: 5 ft 11 in Wt: 221 lbs BSA: 2.20 m2 HR: 80 bpm BP: 135/78 mmHg Rhythm: NSR Medical History Medical History: HTN, Hyperlipidemia, Diabetes Medications: Aspirin,,,,, Losartan,,,,, Atorvastatin,,,,, JanuIVA,,,,, BRILenta,,,,, Vit D2,,,,, Isosorbide Mononitrate ER,,,,, Ozempic,,,,, Bisprolol FumERATE,,,,, Allergies: No known drug allergies Cardiac Risk Factors: HTN, Hyperlipidemia, Diabetes , Smoking Stress Test Details Test: LEXISCAN HR Resting HR: 72 bpm Max Heart Rate (APMHR): 173.619149 bpm Max HR Achieved: 103 bpm Target HR (85% APMHR): 147.499665 bpm % of APMHR: 59.54 Recovery HR: 88 bpm BP Resting BP: 135/78 mmHg Max BP: 135/78 mmHg Recovery BP: 120.0/78.0 mmHg ECG Resting ECG: NSR Clinical Reason for Termination: Completed Protocol Exercise duration: 04:01 min Highest Stage Achieved: Exercise capacity: 1.0 METs Stress ECG Conclusion <1.[address] SEGMENT CHANGES NON-DIAGNOSTIC Test Summary REST 01:16 . . 72 . 135/ 78 . . Stage 1 01:00 . . 103 . . . . Stage 2 01:00 . . 99 . 114/ 70 . . Stage 3 01:00 . . 93 . 114/ 73 . . Stage 4 01:00 . . 91 . 112/ 70 . . Stage 4 01:01 . . 91 . 112/ 70 . Stop exercise at 04:01 RECOVERY 01:00 . . 90 . 108/ 79 . . RECOVERY 02:00 . . 85 . 108/ 79 . . RECOVERY 02:54 . . 87 . 120/ 78 . . Electronically signed by : Omega Gloria MD 05/21/2022 10:06:08
--- NOTE | 2022-05-20 06:51 | NM_ITS ---
APPROVED REPORT Exam: Nuclear Stress Test Indication: TOBACCO USE..CLEARANCE FOR MEDIACATION Patient Location: Outpatient Stress Tech: Nancy Santo NM Tech:EMMY Quevedo RT(R)(N) Ht: 5 ft 11 in Wt: 220 lbs HR: 72 bpm BP: 135/78 mmHg BSA: 2.20 m2 TID: 1.24 BMI: 30.6 History: TOBACCO USE..CLEARANCE FOR MEDIACATION Procedure: Patient received 0.4 mg of intravenous Lexiscan, resting heart rate 72 bpm, resting blood pressure 135/78 mmHg, with Lexiscan maximum heart rate achieved was 103 bpm which is 85 % of the maximum predicted heart rate and blood pressure was 135/78 mmHg. With Lexiscan, patient denied any complaint of chest pain. Electrocardiogram Resting electrocardiogram shows sinus rhythm, with Lexiscan there is less than 1.[address] segment depression noted from the baseline EKG. The EKG portion of the Lexiscan is nondiagnostic. Cardiac Stress and Resting SPECT Images: Cardiac Stress and Resting SPECT images were obtained using technetium 99m Myoview 30.3 mCi stress and 10.37 mCi at rest. Gated SPECT analysis of segmental wall motion and calculation of the ejection fraction also done. Prone images were also obtained. Cardiac prone images show uniform myocardial activity without segmental perfusion abnormality, computer derived ejection fraction is 57% with no regional wall motion abnormality, right ventricle is mildly enlarged with normal contractility. Conclusion: 1. The EKG portion of the Lexiscan is nondiagnostic. 2. No scintigraphic evidence of reversible ischemia seen, computer derived ejection fraction 57% with no regional wall motion abnormality, right ventricle is mildly enlarged with normal contractility. 3. Likely normal Lexiscan Myoview study. Electronically signed by : Omega Gloria MD 05/21/2022 10:08:43
== END ==
PROVIDERS: PCP Physician Assistant; Visit Provider Physician Assistant
DX: R07.9 Chest pain, unspecified (principal)
CPT/HCPCS: 78452; 93017; A9502; J2785

== ENCOUNTER 2022-10-06 16:46 | Emergency (ER) | payer OTHER, SELFPAY ==
[2022-10-06 16:48] VITALS: BP 138/77; PULSE 64; RESP 17; TEMP 36.8; O2SAT 97; BMI 31.2
--- NOTE | 2022-10-06 16:57 | ECG_ITS ---
APPROVED REPORT Exam: Resting ECG HR:64 bpm ECG Measurements Heart Rate 64 AXES PA 187 P 45 QRSd 110 QRS 59 QT 432 T 66 QTc 442 Conclusion SINUS RHYTHM NORMAL ECG UNCONFIRMED REPORT Electronically signed by : Blaine Monet MD 10/06/2022 21:45:50
[2022-10-06 17:01] VITALS: BP 142/71; PULSE 68; RESP 18; O2SAT 97
--- NOTE | 2022-10-06 17:26 | XR_ITS ---
PROCEDURE INFORMATION: Exam: XR Chest Exam date and time: 10/06/2022 5:31 PM Age: 46 years old Clinical indication: Shortness of breath; Patient HX: SOA x wks, smoker. 0 CA HX. ; Additional info: SOB TECHNIQUE: Imaging protocol: Radiologic exam of the chest. Views: 2 views. COMPARISON: CR XR CHEST 2V 02/28/2022 8:11 PM FINDINGS: Lungs: Possible scattered tiny granulomatous changes in the lungs, versus some prominent blood vessels viewed en face, chronic compared with 02/28/2022. No consolidation. Pulmonary vessels do not appear congested. Lung volumes within normal limits. Pleural spaces: Unremarkable. No significant pleural effusion. No pneumothorax. Heart/Mediastinum: The cardiac silhouette is normal. Bones/joints: Mild spinal degenerative changes. No acute fracture or high-grade listhesis, as visualized. IMPRESSION: 1. No acute findings or significant change compared with 02/28/2022. 2. Chronic and non emergency findings, as above.
[2022-10-06 17:45] LABS: Coronavirus 19, PCR Not Detected (NotDetected); Influenza A, PCR Not Detected (NotDetected); Influenza B, PCR Not Detected (NotDetected)
--- NOTE | 2022-10-06 18:17 | HMH.EDGENADL ---
Discharge Plan Disposition Chief Complaint: Upper Respiratory Infection Prescriptions Prescriptions: No Action losartan 50 mg tablet See Rx Instructions .ROUTE .COMPLEX Rx Instructions: TAKE 1 TABLET BY MOUTH DAILY atorvastatin [Lipitor] 40 mg tablet 40 mg PO HS sildenafil 100 mg tablet See Rx Instructions .ROUTE .COMPLEX Rx Instructions: TAKE 1 TABLET BY MOUTH NEEDED FOR SEXUAL ACTIVITY, ADMINISTER 30 MINUTES TO 4 HOURS BEFORE ACTIVITY bisoprolol fumarate 5 mg tablet 5 mg PO DAILY ergocalciferol (vitamin D2) 1,250 mcg (50,000 unit) capsule 1,250 mcg PO WEEKLY Januvia 100 mg tablet 100 mg PO DAILY Brilinta 90 mg tablet 90 mg PO BID Ozempic 0.25 mg or 0.5 mg(2 mg/1.5 mL) pen injector 0.25 mg SQ WEEKLY Rx Instructions: for 4 doses aspirin 81 mg capsule 81 mg PO DAILY Referrals Follow up/Referrals: Fide Zazueta PA [Primary Care Provider] - See instructions Discharge ED Provider: Juve Restrepo Adult HPI General Chief complaint: Upper Respiratory Infection Stated complaint: SOA, tightness Time Seen by Provider: 10/06/22 17:32 Mode of Arrival: Ambulatory Source of Information: Patient Limitations: No Limitations Description of Symptoms (Recalled from ER Triage Doc. by RN): 46 M presents from home with 1 week of chest congestion, tightness, cough, and nasal congestion. Patient reports no respiratory history; however, he is a smoker, and he does report significanty cardiac history with a stent placed 1 year ago. NAD on arrival. Patient has a PCP appointment scheduled for tomorrow in regards to these symptoms. History of Present Illness HPI narrative: Is a 46-year-old white male who presents for 1 week of a clear cough and nasal congestion and chest tightness. Patient states is hard for him to catch a deep breath. Patient does smoke cigarettes on a regular basis. In the emergency room patient is able to speak in full sentences. Patient denied any chest pain pressure heaviness. Related Data Home Medications Medication Instructions Recorded Confirmed aspirin 81 mg capsule 81 mg PO DAILY Heart health 10/06/22 10/06/22 atorvastatin 40 mg tablet (Lipitor) 40 mg PO HS Cholesterol 10/06/22 10/06/22 bisoprolol fumarate 5 mg tablet 5 mg PO DAILY Heart rhythm 10/06/22 10/06/22 ergocalciferol (vitamin D2) 1,250 1,250 mcg PO WEEKLY Supplement 10/06/22 10/06/22 mcg (50,000 unit) capsule losartan 50 mg tablet See Rx Instructions .Route 10/06/22 10/06/22 .COMPLEX High blood pressure semaglutide 0.25 mg or 0.5 mg (2 0.25 mg SQ WEEKLY Diabetes 10/06/22 10/06/22 mg/1.5 mL) subcutaneous pen injector sildenafil 100 mg tablet See Rx Instructions .Route 10/06/22 10/06/22 .COMPLEX Pulmonary Hypertension sitagliptin phosphate 100 mg 100 mg PO DAILY Diabetes 10/06/22 10/06/22 tablet (Januvia) ticagrelor 90 mg tablet (Brilinta) 90 mg PO BID Blood thinner 10/06/22 10/06/22 Allergies Allergy/AdvReac Type Severity Reaction Status Date / Time No Known Allergies Allergy Verified 05/17/22 13:03 [facility] Disclaimer: The information contained in this section may have been updated after the patient was seen, as this information can be updated by other users. Medical History CAD (coronary atherosclerotic disease) Colloid cyst of third ventricle Crescendo angina Diabetes mellitus Hyperlipidemia Hypertension NSTEMI (non-ST elevated myocardial infarction) Numbness and tingling of right arm Social History Smoking Status: Current every day smoker tobacco type: cigarettes packs per day: 2 alcohol intake: current current occupational status: other Travel in the last 8 weeks: None ROS Obtained: Yes All systems reviewed & no additional complaints except as documented Skin no rash or lesions HEENT no runny nose sore
[2022-10-06 18:32] VITALS: BP 157/81; PULSE 62; RESP 18; O2SAT 97
[2022-10-06 18:35] VITALS: BP 157/81; PULSE 68; RESP 19; TEMP 36.7; O2SAT 98
== END 2022-10-06 18:36 | disposition home or self-care (01) ==
PROVIDERS: Emergency Provider Emergency Medicine; PCP Physician Assistant
DX: R06.02 Shortness of breath (principal); J06.9 Acute upper respiratory infection, unspecified; F17.210 Nicotine dependence, cigarettes, uncomplicated; E11.9 Type 2 diabetes mellitus without complications; I25.10 Atherosclerotic heart disease of native coronary artery without angina pectoris; I11.9 Hypertensive heart disease without heart failure; E78.5 Hyperlipidemia, unspecified; Z79.84 Long term (current) use of oral hypoglycemic drugs
CPT/HCPCS: 71046; 87635; 87636; 93005; 99283; 99284; C9803; U0003; U0005

== ENCOUNTER 2022-10-09 20:54 | Emergency (ER) | payer OTHER, SELFPAY ==
[2022-10-09] VITALS (8 sets, daily range): BP systolic 142–173; BP diastolic 82–93; PULSE 64–82; RESP 12–21; TEMP 36.8–36.9; O2SAT 95–100; BMI 30.5
--- NOTE | 2022-10-09 20:56 | ECG_ITS ---
APPROVED REPORT Exam: Resting ECG HR:64 bpm ECG Measurements Heart Rate 64 AXES MN 186 P 40 QRSd 109 QRS 65 QT 418 T 53 QTc 428 Conclusion SINUS RHYTHM NORMAL ECG UNCONFIRMED REPORT Electronically signed by : Blaine Monet MD 10/10/2022 06:44:35
--- NOTE | 2022-10-09 20:58 | XR_ITS ---
PROCEDURE INFORMATION: Exam: XR Chest Exam date and time: 10/09/2022 9:00 PM Age: 46 years old Clinical indication: Pain; Chest pressure; Additional info: SOA chest tightness TECHNIQUE: Imaging protocol: Radiologic exam of the chest. Views: 1 view. COMPARISON: CR XR CHEST 2V 10/06/2022 5:31 PM FINDINGS: Lungs: Unremarkable. No consolidation. Pleural spaces: Unremarkable. No pleural effusion. No pneumothorax. Heart/Mediastinum: Unremarkable. No cardiomegaly. Bones/joints: Unremarkable. IMPRESSION: No acute findings.
--- NOTE | 2022-10-09 20:58 | CT_ITS ---
PROCEDURE INFORMATION: Exam: CTA Chest With Contrast Exam date and time: 10/09/2022 9:37 PM Age: 46 years old Clinical indication: Pain; Chest pressure; Additional info: Chest tightness SOA TECHNIQUE: Imaging protocol: Computed tomographic angiography of the chest with contrast. Exam focused on the arteries. 3D rendering (Not supervised by radiologist): MIP and/or 3D reconstructed images were created by the technologist. Radiation optimization: All CT scans at this facility use at least one of these dose optimization techniques: automated exposure control; mA and/or kV adjustment per patient size (includes targeted exams where dose is matched to clinical indication); or iterative reconstruction. Contrast material: ISOVUE; Contrast volume: 70 ml; Contrast route: INTRAVENOUS (IV); REPORTING DATA: Count of CT and Cardiac NM exams in prior 12 months: This patient has received 0 known CTs and 0 known cardiac nuclear medicine studies in the 12 months prior to the current study. COMPARISON: CR XR CHEST PORTABLE 10/09/2022 9:00 PM FINDINGS: Pulmonary arteries: Normal. No pulmonary emboli. Aorta: There is fusiform dilation of the ascending thoracic aorta measuring 4.35 cm in greatest diameter. No evidence of aortic dissection. Lungs: Several scattered small calcified granulomas noted in both lungs. No active pulmonary infiltrate. Pleural spaces: Unremarkable. No pneumothorax. No pleural effusion. Heart: Unremarkable. No cardiomegaly. No pericardial effusion. Coronary arteries: Diffuse coronary artery calcifications. Lymph nodes: Unremarkable. No enlarged lymph nodes. Kidneys and ureters: Partially visualized simple appearing exophytic cortical cyst in the upper right kidney measures 2.9 cm. Bones/joints: Unremarkable. No acute fracture. Soft tissues: Unremarkable. IMPRESSION: 1. No evidence of pulmonary embolus or other acute abnormality in the chest. 2. Dilation of the ascending aorta measuring 4.35 cm. No evidence of aortic dissection. 3. Coronary artery calcifications COMMENTS: Consistent with the [employer]'s Incidental Findings Committee white paper (J Am Shannon Radiol 2018): Any incidental renal lesion less than 1 cm or classified as too small to characterize, or any incidental cystic renal lesion characterized as simple-appearing, is likely benign. No follow-up imaging is recommended for these lesions per consensus recommendations based on imaging criteria.
[2022-10-09 21:09] LABS: Basophils % 0.5 % (0.1-2.0); Eosinophils # 0.2 K/mm3 (0.0-0.4); Hematocrit 48.6 % (42.0-52.0); Hemoglobin 16.2 g/dL (14.1-18.0); Lymphocytes # 1.9 K/mm3 (0.7-4.5); Lymphocytes % 23.8 % (10-50); Mean Corpuscular HGB Conc 33.4 g/dL (31.8-35.4); Mean Corpuscular Hemoglobin 30.4 pg (27.0-31.2); Mean Platelet Volume 8.1 fl (7.4-10.4); Monocytes # 0.3 K/mm3 (0.1-1.0); Monocytes % 4.4 % (1.7-9.3); Neutrophils # 5.3 K/mm3 (1.8-7.8); Neutrophils % 68.4 % (37.0-80.0); Platelet Count 236 K/mm3 (142-424); Red Blood Count 5.34 M/mm3 (4.60-6.20); Red Cell Distribution Width 13.6 % (11.5-17.5); White Blood Count 7.8 K/mm3 (4.8-10.8)
[2022-10-09 21:18] LABS: Alanine Aminotransferase 26 U/L (12-78); Albumin/Globulin Ratio 1.5 (1.1-1.8); Alkaline Phosphatase 75 U/L (38-126); Anion Gap 18.9 mEq/L (5-15); Aspartate Amino Transferase 27 U/L (17-59); Bilirubin,Total 0.8 mg/dl (0.2-1.3); Blood Urea Nitrogen 3 mg/dl (9-20); Carbon Dioxide 27 mmol/L (22.0-30.0); Chloride 93 mmol/L (98-107); Creatinine Clearance Estimated 160 mL/min (50-200); Estimated Glomerular Filt Rate 104 ml/min (>60); GFR (African American) 125 ML/MIN (>60); Globulin 3.3 g/dL (1.3-3.2); Glucose 242 mg/dl (74-100); Potassium 3.9 mmoL/L (3.5-5.1); Sodium 135 mmol/L (136-145); Total Protein,Serum 8.3 g/dl (6.3-8.2)
[2022-10-09 21:22] LABS: C-Reactive Protein 0.5 mg/L (0-4)
[2022-10-09 21:28] LABS: NT Pro Brain Natriuretic Pep. 170 pg/mL (0-125)
[2022-10-09 21:31] LABS: ABG Base Excess -0.7 mmol/L (-2.4-2.3); ABG HCO3 23.6 mmhg (22.0-26.0); ABG Oxygen Saturation 96 % (90-100); ABG PCO2 36.6 mmhg (35.0-45.0); ABG PH 7.43 mmol/L (7.35-7.45); ABG PO2 77.5 mmhg (80-100); ABG TCO2 24.8 mmhg (23-27)
[2022-10-09 21:32] LABS: Allen's Test y; Oxygen ra %; Source rr
[2022-10-09 21:32] LABS: Acetone, Serum (Rapid) None Detected (None Detect)
[2022-10-09 21:33] LABS: Troponin I < 0.01 ng/ml (0.00-0.034)
--- NOTE | 2022-10-09 21:33 | PC.NURSE ---
Pt gone to RAD
[2022-10-09 21:36] LABS: Procalcitonin 0.048 ng/mL (0.0-2.0)
--- NOTE | 2022-10-09 21:38 | PC.NURSE ---
ROUNDED ON PT NOTHING NEEDED AT THIS TIME
--- NOTE | 2022-10-09 21:41 | PC.NURSE ---
Pt returned from RAD
[2022-10-09 21:42] LABS: Erythrocyte Sedimentation Rate 12 mm/hr (0-15)
--- NOTE | 2022-10-09 22:10 | PC.NURSE ---
Dr. Gold at
--- NOTE | 2022-10-09 22:18 | HMH.EDCP ---
Discharge Plan Disposition Patient Disposition: Home, Self-Care Prescriptions Prescriptions: New prednisone [prednisone] 20 mg tablet 20 mg PO BID Qty: 10 0RF No Action losartan 50 mg tablet See Rx Instructions .ROUTE .COMPLEX Rx Instructions: TAKE 1 TABLET BY MOUTH DAILY atorvastatin [Lipitor] 40 mg tablet 40 mg PO HS sildenafil 100 mg tablet See Rx Instructions .ROUTE .COMPLEX Rx Instructions: TAKE 1 TABLET BY MOUTH NEEDED FOR SEXUAL ACTIVITY, ADMINISTER 30 MINUTES TO 4 HOURS BEFORE ACTIVITY bisoprolol fumarate 5 mg tablet 5 mg PO DAILY ergocalciferol (vitamin D2) 1,250 mcg (50,000 unit) capsule 1,250 mcg PO WEEKLY Januvia 100 mg tablet 100 mg PO DAILY Brilinta 90 mg tablet 90 mg PO BID aspirin 81 mg capsule 81 mg PO DAILY albuterol sulfate [Proventil HFA] 90 mcg/actuation HFA aerosol inhaler 2 puff inhalation Q6H levocetirizine [Xyzal] 5 mg tablet 5 mg PO DAILY fluticasone furoate-vilanterol [Breo Ellipta] 200-25 mcg/dose blister with device 1 inh inhalation Q24H Rx Instructions: after inhalation, rinse mouth with water and spit out; do not swallow Referrals Follow up/Referrals: Fide Zazueta PA [Primary Care Provider] - See instructions Clinical Impressions Clinical Impression: Reactive airway disease Instructions Patient Instructions: DI for Atypical Chest Pain, DI for Anxiety -- Adult Discharge ED Provider: Asif (ED)Bandar Chest Pain HPI General Chief Complaint: Chest Pain Stated Complaint: chest pain Time Seen by Provider: 10/09/22 22:18 Mode of Arrival: Ambulatory Source of Information: Patient and Medical Record Limitations: No Limitations Description of Symptoms (Recalled from ER Triage Doc. by RN): pt c/o chest tightness with SOA episodes x 1 week was seen in er last week and diagnosed with COPD and URI. History of Present Illness HPI narrative: sob with feeling of sob over the last week - was seen in the ed for same - has seen pcp and has pending inhaler - no chest pain MD complaint: chest pain Onset (ago): day(s) Duration: intermittent Associated symptoms: dyspnea Risk Factors for CAD: Hypertension, Family Hx of CAD and Diabetes Treatments prior to or on arrival for Cardiac Chest Pain: none ESTEVAN Score for Non-Stemi Age of Patient: 40-49 years old Heart Rate: 70-89 bpm Systolic Blood Pressure: 120-139 mmhg Serum Creatinine: 0.80-1.19 mg/dl CHF Killip Class: I-No CHF Other Risk Factors: None Non-Stemi Risk Score: 75 Risk Stratification: 1-108 = Low Risk Related Data Home Medications Medication Instructions Recorded Confirmed aspirin 81 mg capsule 81 mg PO DAILY Heart health 10/06/22 10/09/22 atorvastatin 40 mg tablet (Lipitor) 40 mg PO HS Cholesterol 10/06/22 10/09/22 bisoprolol fumarate 5 mg tablet 5 mg PO DAILY Heart rhythm 10/06/22 10/09/22 ergocalciferol (vitamin D2) 1,250 1,250 mcg PO WEEKLY Supplement 10/06/22 10/09/22 mcg (50,000 unit) capsule losartan 50 mg tablet See Rx Instructions .Route 10/06/22 10/09/22 .COMPLEX High blood pressure sildenafil 100 mg tablet See Rx Instructions .Route 10/06/22 10/09/22 .COMPLEX Pulmonary Hypertension sitagliptin phosphate 100 mg 100 mg PO DAILY Diabetes 10/06/22 10/09/22 tablet (Januvia) ticagrelor 90 mg tablet (Brilinta) 90 mg PO BID Blood thinner 10/06/22 10/09/22 albuterol sulfate 90 mcg/actuation 2 puff inhalation Q6H Breathing 10/09/22 10/09/22 aerosol inhaler (Proventil HFA) problems fluticasone furoate 200 1 inh inhalation Q24H Breathing 10/09/22 10/09/22 mcg-vilanterol 25 mcg/dose problems inhalation powder (Breo Ellipta) levocetirizine 5 mg tablet (Xyzal) 5 mg PO DAILY Allergy symptoms 10/09/22 10/09/22 Previous Rx's Medication Instructions Recorded prednisone 20 mg tablet 20 mg PO BID #10 tabs 10/10/22 Allergies Allergy/AdvReac Type Severity Reaction Status Date / Time No Known Allergie
--- NOTE | 2022-10-09 22:40 | PC.NURSE ---
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
[2022-10-09 22:52] LABS: Hemoglobin A1C 9.1 % (4.0-6.0)
== END 2022-10-09 23:45 | disposition home or self-care (01) ==
PROVIDERS: Emergency Provider Emergency Medicine; PCP Physician Assistant
DX: J45.909 Unspecified asthma, uncomplicated; E11.65 Type 2 diabetes mellitus with hyperglycemia; F17.210 Nicotine dependence, cigarettes, uncomplicated; I25.10 Atherosclerotic heart disease of native coronary artery without angina pectoris; I11.9 Hypertensive heart disease without heart failure; E78.5 Hyperlipidemia, unspecified; Z79.84 Long term (current) use of oral hypoglycemic drugs
CPT/HCPCS: 71045; 71275; 80053; 82009; 82803; 83036; 83880; 84145; 84484; 85025; 85651; 86140; 93005; 96361; 96374; 96375; 99285; Q9967

== ENCOUNTER 2022-10-12 00:13 | Emergency (ER) | payer OTHER, SELFPAY ==
--- NOTE | 2022-10-12 00:11 | ECG_ITS ---
APPROVED REPORT Exam: Resting ECG HR:65 bpm ECG Measurements Heart Rate 65 AXES MT 174 P 57 QRSd 108 QRS 51 QT 416 T 71 QTc 428 Conclusion SINUS RHYTHM NORMAL ECG UNCONFIRMED REPORT Electronically signed by : Blaine Monet MD 10/12/2022 21:35:56
[2022-10-12 00:14] VITALS: BP 150/78; PULSE 73; RESP 16; TEMP 36.9; O2SAT 100; BMI 30.5
[2022-10-12 00:30] VITALS: BP 174/90; PULSE 63; RESP 13; O2SAT 99
--- NOTE | 2022-10-12 00:33 | XR_ITS ---
PROCEDURE INFORMATION: Exam: XR Chest Exam date and time: 10/12/2022 12:34 AM Age: 46 years old Clinical indication: Shortness of breath; Patient HX: States he cannot get a deep breath; Additional info: SOA TECHNIQUE: Imaging protocol: Radiologic exam of the chest. Views: 2 views. COMPARISON: CR XR CHEST PORTABLE 10/09/2022 9:00 PM FINDINGS: Lungs: Unremarkable. No consolidation. Left midlung zone granuloma. Pleural spaces: Unremarkable. No pleural effusion. No pneumothorax. Heart/Mediastinum: Unremarkable. No cardiomegaly. Vasculature: Unremarkable. Bones/joints: Unremarkable. IMPRESSION: No acute findings.
[2022-10-12 00:53] LABS: Magnesium 2.2 mg/dl (1.6-2.3)
--- NOTE | 2022-10-12 00:55 | HMH.EDSOB ---
Discharge Plan Disposition Patient Disposition: Home, Self-Care Chief Complaint: Shortness of Breath/Dyspnea Prescriptions Prescriptions: No Action ipratropium-albuterol 0.5 mg-3 mg(2.5 mg base)/3 mL solution for nebulization 3 ml inhalation QID PRN (Reason: shortness of breath or wheezing) Qty: 180 5RF quetiapine [Seroquel] 25 mg tablet 25 mg PO QHS Qty: 30 2RF buspirone 5 mg tablet 5 mg PO BID Qty: 60 2RF losartan 50 mg tablet See Rx Instructions .ROUTE .COMPLEX Rx Instructions: TAKE 1 TABLET BY MOUTH DAILY atorvastatin [Lipitor] 40 mg tablet 40 mg PO HS sildenafil 100 mg tablet See Rx Instructions .ROUTE .COMPLEX Rx Instructions: TAKE 1 TABLET BY MOUTH NEEDED FOR SEXUAL ACTIVITY, ADMINISTER 30 MINUTES TO 4 HOURS BEFORE ACTIVITY bisoprolol fumarate 5 mg tablet 5 mg PO DAILY ergocalciferol (vitamin D2) 1,250 mcg (50,000 unit) capsule 1,250 mcg PO WEEKLY Januvia 100 mg tablet 100 mg PO DAILY Brilinta 90 mg tablet 90 mg PO BID aspirin 81 mg capsule 81 mg PO DAILY albuterol sulfate [Proventil HFA] 90 mcg/actuation HFA aerosol inhaler 2 puff inhalation Q6H levocetirizine [Xyzal] 5 mg tablet 5 mg PO DAILY fluticasone furoate-vilanterol [Breo Ellipta] 200-25 mcg/dose blister with device 1 inh inhalation Q24H Rx Instructions: after inhalation, rinse mouth with water and spit out; do not swallow prednisone [prednisone] 20 mg tablet 20 mg PO BID Qty: 10 0RF Referrals Follow up/Referrals: Fide Zazueta PA [Primary Care Provider] - See instructions Obie Torres MD [Staff Physician] - See instructions Clinical Impressions Clinical Impression: Ascending aortic aneurysm, Diabetes mellitus, Acute exacerbation of chronic obstructive airways disease, Medication adverse effect Instructions Patient Instructions: DI for Shortness of Breath Discharge ED Provider: Asif (ED)Bandar Resp/SOB HPI General Chief Complaint: Shortness of Breath/Dyspnea Stated Complaint: shortness of breath Time Seen by Provider: 10/12/22 00:40 Mode of Arrival: Ambulatory Source of Information: Patient Limitations: No Limitations Description of Symptoms (Recalled from ER Triage Doc. by RN): Pt was seen in ER for SOA a few days ago states he is continuing to to have SOA. History of Present Illness has sob and no chest pain - recent ed visit - has cad - has tob use and copd MD Complaint: shortness of breath Onset (ago): hour(s) Severity: moderate Consistency/Duration: intermittent Known history of: COPD Associated symptoms: chest pain Related Data Home oxygen amount: none Home Medications Medication Instructions Recorded Confirmed aspirin 81 mg capsule 81 mg PO DAILY Heart health 10/06/22 10/11/22 atorvastatin 40 mg tablet (Lipitor) 40 mg PO HS Cholesterol 10/06/22 10/11/22 bisoprolol fumarate 5 mg tablet 5 mg PO DAILY Heart rhythm 10/06/22 10/11/22 ergocalciferol (vitamin D2) 1,250 1,250 mcg PO WEEKLY Supplement 10/06/22 10/11/22 mcg (50,000 unit) capsule losartan 50 mg tablet See Rx Instructions .Route 10/06/22 10/11/22 .COMPLEX High blood pressure sildenafil 100 mg tablet See Rx Instructions .Route 10/06/22 10/11/22 .COMPLEX Pulmonary Hypertension sitagliptin phosphate 100 mg 100 mg PO DAILY Diabetes 10/06/22 10/11/22 tablet (Januvia) ticagrelor 90 mg tablet (Brilinta) 90 mg PO BID Blood thinner 10/06/22 10/11/22 albuterol sulfate 90 mcg/actuation 2 puff inhalation Q6H Breathing 10/09/22 10/11/22 aerosol inhaler (Proventil HFA) problems fluticasone furoate 200 1 inh inhalation Q24H Breathing 10/09/22 10/11/22 mcg-vilanterol 25 mcg/dose problems inhalation powder (Breo Ellipta) levocetirizine 5 mg tablet (Xyzal) 5 mg PO DAILY Allergy symptoms 10/09/22 10/11/22 Previous Rx's Medication Instructions Recorded prednisone 20 mg tablet 20 mg PO BID #10 tabs 10/10/22 buspirone 5 mg tablet 5 m
[2022-10-12 00:58] LABS: C-Reactive Protein 0.9 mg/L (0-4)
[2022-10-12 01:00] VITALS: BP 130/76; PULSE 71; RESP 12; O2SAT 99
[2022-10-12 01:07] LABS: NT Pro Brain Natriuretic Pep. 213 pg/mL (0-125)
--- NOTE | 2022-10-12 01:09 | PC.NURSE ---
spoke with Dr. Torres at bedside discussing POC with pt at this time
[2022-10-12 01:11] LABS: Procalcitonin 0.063 ng/mL (0.0-2.0)
--- NOTE | 2022-10-12 01:15 | PC.NURSE ---
ER at bedside
[2022-10-12 01:25] LABS: Troponin I < 0.01 ng/ml (0.00-0.034)
[2022-10-12 01:30] VITALS: BP 141/85; PULSE 63; RESP 15; O2SAT 98
[2022-10-12 01:48] LABS: Erythrocyte Sedimentation Rate 16 mm/hr (0-15)
[2022-10-12 01:54] LABS: Basophils % 0.2 % (0.1-2.0); Eosinophils % 0.2 % (0.1-12.0); Hemoglobin 15.9 g/dL (14.1-18.0); Lymphocytes # 1.4 K/mm3 (0.7-4.5); Lymphocytes % 13.2 % (10-50); Mean Corpuscular HGB Conc 32.4 g/dL (31.8-35.4); Mean Corpuscular Hemoglobin 30.4 pg (27.0-31.2); Mean Corpuscular Volume 93.8 fl (80-94); Mean Platelet Volume 8.4 fl (7.4-10.4); Monocytes # 0.5 K/mm3 (0.1-1.0); Neutrophils # 8.9 K/mm3 (1.8-7.8); Neutrophils % 81.4 % (37.0-80.0); Platelet Count 244 K/mm3 (142-424); Red Blood Count 5.22 M/mm3 (4.60-6.20); Red Cell Distribution Width 13.8 % (11.5-17.5); White Blood Count 10.9 K/mm3 (4.8-10.8)
[2022-10-12 01:57] LABS: Anion Gap 20.4 mEq/L (5-15); Blood Urea Nitrogen 12 mg/dl (9-20); Calcium 9.4 mg/dl (8.4-10.2); Carbon Dioxide 24 mmol/L (22.0-30.0); Chloride 90 mmol/L (98-107); Creatinine Clearance Estimated 143 mL/min (50-200); Estimated Glomerular Filt Rate 90 ml/min (>60); GFR (African American) 109 ML/MIN (>60); Glucose 424 mg/dl (74-100); Potassium 4.4 mmoL/L (3.5-5.1); Sodium 130 mmol/L (136-145)
[2022-10-12 02:00] VITALS: BP 134/78; PULSE 68; RESP 13; O2SAT 98
--- NOTE | 2022-10-12 02:06 | PC.NURSE ---
Dr. Gold notified of critical blood glucose 424
[2022-10-12 02:12] LABS: Acetone, Serum (Rapid) None Detected (None Detect)
[2022-10-12 02:18] VITALS: BP 134/78; PULSE 68; RESP 19; TEMP 37; O2SAT 99
== END 2022-10-12 02:20 | disposition home or self-care (01) ==
PROVIDERS: Emergency Provider Emergency Medicine; PCP Physician Assistant
DX: J44.1 Chronic obstructive pulmonary disease with (acute) exacerbation (principal); I71.21 Aneurysm of the ascending aorta, without rupture; E11.9 Type 2 diabetes mellitus without complications; I10 Essential (primary) hypertension; I25.119 Atherosclerotic heart disease of native coronary artery with unspecified angina pectoris; E78.5 Hyperlipidemia, unspecified; I25.2 Old myocardial infarction; F17.210 Nicotine dependence, cigarettes, uncomplicated; Z79.85 Long-term (current) use of injectable non-insulin antidiabetic drugs
CPT/HCPCS: 71046; 80048; 82009; 83735; 83880; 84145; 84484; 85025; 85651; 86140; 93005; 96361; 96374; 99285

== ENCOUNTER 2022-10-16 14:45 | Emergency (ER) | payer OTHER, SELFPAY ==
--- NOTE | 2022-10-16 14:43 | ECG_ITS ---
APPROVED REPORT Exam: Resting ECG HR:74 bpm ECG Measurements Heart Rate 74 AXES VT 183 P 42 QRSd 108 QRS 16 QT 391 T 41 QTc 418 Conclusion SINUS RHYTHM NORMAL ECG UNCONFIRMED REPORT Electronically signed by : Blaine Monet MD 10/18/2022 08:18:05
[2022-10-16 14:46] VITALS: BP 138/84; PULSE 85; RESP 20; TEMP 36.7; O2SAT 99; BMI 29.2
--- NOTE | 2022-10-16 14:57 | XR_ITS ---
PROCEDURE INFORMATION: Exam: XR Chest Exam date and time: 10/16/2022 2:58 PM Age: 46 years old Clinical indication: Pain; Chest pressure; Additional info: Cp TECHNIQUE: Imaging protocol: Radiologic exam of the chest. Views: 1 view. COMPARISON: CR XR CHEST 2V 10/12/2022 12:34 AM FINDINGS: Lungs: Unremarkable. No consolidation. Pleural spaces: Unremarkable. No pleural effusion. No pneumothorax. Heart/Mediastinum: Unremarkable. No cardiomegaly. Bones/joints: Unremarkable. IMPRESSION: No acute findings.
--- NOTE | 2022-10-16 14:58 | HMH.EDCP ---
Discharge Plan Disposition Patient Disposition: Home, Self-Care Condition: Good Chief Complaint: Chest Pain Prescriptions Prescriptions: No Action ipratropium-albuterol 0.5 mg-3 mg(2.5 mg base)/3 mL solution for nebulization 3 ml inhalation QID PRN (Reason: shortness of breath or wheezing) Qty: 180 5RF quetiapine [Seroquel] 25 mg tablet 25 mg PO QHS Qty: 30 2RF clopidogrel [Plavix] 75 mg tablet 75 mg PO DAILY Qty: 30 11RF buspirone 5 mg tablet 5 mg PO BID Qty: 60 2RF losartan 50 mg tablet See Rx Instructions .ROUTE .COMPLEX Rx Instructions: TAKE 1 TABLET BY MOUTH DAILY atorvastatin [Lipitor] 40 mg tablet 40 mg PO HS sildenafil 100 mg tablet See Rx Instructions .ROUTE .COMPLEX Rx Instructions: TAKE 1 TABLET BY MOUTH NEEDED FOR SEXUAL ACTIVITY, ADMINISTER 30 MINUTES TO 4 HOURS BEFORE ACTIVITY bisoprolol fumarate 5 mg tablet 5 mg PO DAILY ergocalciferol (vitamin D2) 1,250 mcg (50,000 unit) capsule 1,250 mcg PO WEEKLY Januvia 100 mg tablet 100 mg PO DAILY aspirin 81 mg capsule 81 mg PO DAILY albuterol sulfate [Proventil HFA] 90 mcg/actuation HFA aerosol inhaler 2 puff inhalation Q6H levocetirizine [Xyzal] 5 mg tablet 5 mg PO DAILY fluticasone furoate-vilanterol [Breo Ellipta] 200-25 mcg/dose blister with device 1 inh inhalation Q24H Rx Instructions: after inhalation, rinse mouth with water and spit out; do not swallow prednisone [prednisone] 20 mg tablet 20 mg PO BID Qty: 10 0RF Referrals Follow up/Referrals: Provider,Referral, MD [Referring] - See instructions Activity Restrictions/Add. Instructions Additional Instructions/Restrictions: Your work-up in the emergency department today did not show any life-threatening or dangerous causes for your chest pain. It is unlikely that you are having a heart attack or that you are having a blood clot in your lung. Also there is no evidence of your aorta tearing apart. You have no pneumonia on x-ray. Your oxygen saturations are normal. You were noted to have a mildly elevated blood pressure. I strongly recommend that you follow-up with your primary care doctor in approximately 1 week to discuss the possibility of undergoing a stress test to check how healthy your heart is. Please return to the emergency department if you feel worse in any way. Take all medications as prescribed. Follow-up with your primary care doctor even if you feel well. I suspect that you may have a component of anxiety. I strongly recommend that you take your Seroquel as prescribed and not only when you feel anxious or unwell. Clinical Impressions Clinical Impression: Atypical chest pain Instructions Patient Instructions: DI for Atypical Chest Pain Discharge ED Provider: Nazia Salas Chest Pain HPI General Chief Complaint: Chest Pain Stated Complaint: CP Time Seen by Provider: 10/16/22 14:53 Mode of Arrival: Ambulatory Source of Information: Patient Limitations: No Limitations History of Present Illness HPI narrative: The patient presents to the emergency department complaining of chest discomfort that started approximately 1 hour ago. Currently he has no discomfort but feels anxious. He has had a myocardial infarction in the past and has received a cardiac stent in February. He smokes about 1 pack a day now down from 3 packs a day. He is also diabetic. MD complaint: chest pain ESTEVAN Score for Non-Stemi Age of Patient: 40-49 years old Heart Rate: 70-89 bpm Systolic Blood Pressure: 140-159 mmHg Serum Creatinine: 0.40-0.79 mg/dl CHF Killip Class: I-No CHF Other Risk Factors: None Non-Stemi Risk Score: 62 Related Data Home Medications Medication Instructions Recorded Confirmed aspirin 81 mg capsule 81 mg PO DAILY Heart health 10/06/22 10/13/22 atorvastatin 40 mg tablet (Lipitor) 40 mg PO HS Cholesterol 10/06/22 10/13/22 bisoprolol fumarate 5 mg tablet 5 mg PO DAILY
--- NOTE | 2022-10-16 15:03 | PC.NURSE ---
XR AT BEDSIDE
[2022-10-16 15:19] LABS: Basophils % 0.3 % (0.1-2.0); Chloride 93 mmol/L (98-107); Eosinophils # 0.2 K/mm3 (0.0-0.4); Eosinophils % 1.8 % (0.1-12.0); Hemoglobin 14.6 g/dL (14.1-18.0); Lymphocytes # 2.3 K/mm3 (0.7-4.5); Lymphocytes % 23.2 % (10-50); Mean Corpuscular HGB Conc 32.4 g/dL (31.8-35.4); Mean Corpuscular Hemoglobin 29.6 pg (27.0-31.2); Mean Corpuscular Volume 91.5 fl (80-94); Mean Platelet Volume 8.2 fl (7.4-10.4); Monocytes # 0.5 K/mm3 (0.1-1.0); Monocytes % 5.3 % (1.7-9.3); Neutrophils # 6.9 K/mm3 (1.8-7.8); Neutrophils % 69.5 % (37.0-80.0); Platelet Count 237 K/mm3 (142-424); Potassium 3.9 mmoL/L (3.5-5.1); Red Blood Count 4.92 M/mm3 (4.60-6.20); Red Cell Distribution Width 13.5 % (11.5-17.5); Sodium 132 mmol/L (136-145)
[2022-10-16 15:21] LABS: Alanine Aminotransferase 22 U/L (12-78); Alkaline Phosphatase 58 U/L (38-126); Anion Gap 15.9 mEq/L (5-15); Aspartate Amino Transferase 24 U/L (17-59); Bilirubin,Total 0.4 mg/dl (0.2-1.3); Blood Urea Nitrogen 8 mg/dl (9-20); Carbon Dioxide 27 mmol/L (22.0-30.0); Creatinine Clearance Estimated 176 mL/min (50-200); Estimated Glomerular Filt Rate 121 ml/min (>60); GFR (African American) 146 ML/MIN (>60)
[2022-10-16 15:22] LABS: Albumin Level 4.2 g/dl (3.5-5.0); Albumin/Globulin Ratio 1.6 (1.1-1.8); Calcium 8.7 mg/dl (8.4-10.2); Globulin 2.6 g/dL (1.3-3.2); Glucose 254 mg/dl (74-100); Total Protein,Serum 6.8 g/dl (6.3-8.2)
[2022-10-16 15:31] LABS: NT Pro Brain Natriuretic Pep. 99.3 pg/mL (0-125)
[2022-10-16 15:35] LABS: Troponin I < 0.01 ng/ml (0.00-0.034)
[2022-10-16 18:26] LABS: Troponin I < 0.01 ng/ml (0.00-0.034)
[2022-10-16 18:34] VITALS: BP 153/94; PULSE 71; RESP 16; TEMP 36.4; O2SAT 97
== END 2022-10-16 18:40 | disposition home or self-care (01) ==
PROVIDERS: Emergency Provider Emergency Medicine; PCP Physician Assistant
DX: R07.89 Other chest pain (principal); I25.118 Atherosclerotic heart disease of native coronary artery with other forms of angina pectoris; E11.9 Type 2 diabetes mellitus without complications; E78.5 Hyperlipidemia, unspecified; I10 Essential (primary) hypertension; I25.2 Old myocardial infarction; F17.210 Nicotine dependence, cigarettes, uncomplicated
CPT/HCPCS: 36415; 71045; 80053; 83880; 84484; 85025; 93005; 99285

== ENCOUNTER → 2022-10-25 12:46 | Outpatient (CLI) | payer OTHER, SELFPAY ==
--- NOTE | 2022-10-25 12:46 | CT_ITS ---
FINAL REPORT CLINICAL HISTORY: lung cancer screening, smoker, 3ppd x 29 years, 2 months ago he changed to 1 ppd. CAD. no hx of cancer COMPARISON: 10/10/2022 FINDINGS: CTDI vol (mGy): 2.90 DLP: 112.[address] images of the chest were obtained using the low-dose protocol for screening. There is no evidence of mediastinal or hilar mass or adenopathy. No axillary mass or adenopathy is identified. On the lung window images, no pulmonary mass or suspicious nodule is identified. There is mild emphysema and mild scarring. Several calcified granulomas are noted. Again seen is ectasia of the ascending aorta measuring 4.35 cm. There are severe coronary artery calcifications. IMPRESSION: Lung RADS category 1 . Recommend 12 month followup low-dose CT for further evaluation. Reviewed, Interpreted and Dictated by Venkata Winslow III, MD Transcribed by Meagan Flores Authenticated and . [facility]
== END ==
PROVIDERS: PCP Physician Assistant; Visit Provider Physician Assistant
DX: Z87.891 Personal history of nicotine dependence (principal); Z12.2 Encounter for screening for malignant neoplasm of respiratory organs
CPT/HCPCS: 71271; 94060; 94726; 94729

== ENCOUNTER 2023-05-12 12:08 | Outpatient (CLI) | payer OTHER, SELFPAY ==
[2023-05-12 12:16] LABS: Basophils # 0.1 K/mm3 (0-0.2); Basophils % 0.5 % (0.1-2.0); Eosinophils # 0.3 K/mm3 (0.0-0.4); Eosinophils % 2.1 % (0.1-12.0); Hematocrit 43.1 % (42.0-52.0); Hemoglobin 14.8 g/dL (14.1-18.0); Lymphocytes % 17.3 % (10-50); Mean Corpuscular HGB Conc 34.4 g/dL (31.8-35.4); Mean Corpuscular Hemoglobin 32.2 pg (27.0-31.2); Mean Corpuscular Volume 93.7 fl (80-94); Mean Platelet Volume 8.9 fl (7.4-10.4); Monocytes # 0.6 K/mm3 (0.1-1.0); Monocytes % 5.2 % (1.7-9.3); Neutrophils # 8.7 K/mm3 (1.8-7.8); Neutrophils % 74.9 % (37.0-80.0); Platelet Count 261 K/mm3 (142-424); Red Blood Count 4.61 M/mm3 (4.60-6.20); Red Cell Distribution Width 14.3 % (11.5-17.5); White Blood Count 11.6 K/mm3 (4.8-10.8)
[2023-05-12 12:20] LABS: Chloride 97 mmol/L (98-107); Sodium 129 mmol/L (136-145)
[2023-05-12 12:21] LABS: Potassium 4.1 mmoL/L (3.5-5.1)
[2023-05-12 12:23] LABS: Alanine Aminotransferase 21 U/L (12-78); Alkaline Phosphatase 64 U/L (38-126); Anion Gap 11.1 mEq/L (5-15); Aspartate Amino Transferase 24 U/L (17-59); Bilirubin,Total 0.5 mg/dl (0.2-1.3); Blood Urea Nitrogen 6 mg/dl (9-20); Carbon Dioxide 25 mmol/L (22.0-30.0); Estimated Glomerular Filt Rate 103 ml/min (>60); GFR (African American) 125 ML/MIN (>60)
[2023-05-12 12:24] LABS: Albumin Level 4.1 g/dl (3.5-5.0); Albumin/Globulin Ratio 1.6 (1.1-1.8); Calcium 8.8 mg/dl (8.4-10.2); Chol/HDL Ratio 6.8 (1-3.5); Cholesterol 150 mg/dl (140-200); Globulin 2.6 g/dL (1.3-3.2); Glucose 220 mg/dl (74-100); HDL Cholesterol 22 mg/dl (40-60); Total Protein,Serum 6.7 g/dl (6.3-8.2); Triglycerides 317 mg/dl (30-150); VLDL Cholesterol 63 mg/dL (0-40)
[2023-05-12 12:26] LABS: Creatinine,Urine Random 62 mg/dL (Not Estab.)
[2023-05-12 12:34] LABS: Microalbumin < 6.000 mg/L (0-16.7)
[2023-05-12 12:35] LABS: Amphetamine/Metha Screen,Urine Negative ng/ml (<1000); Direct LDL Cholesterol 67.01 mg/dL (100-129)
[2023-05-12 12:36] LABS: Barbiturates Screen,Urine Negative ng/ml (<200)
[2023-05-12 12:37] LABS: Cannabinoid Screen,Urine Negative ng/ml (<50)
[2023-05-12 12:38] LABS: Cocaine Screen,Urine Negative ng/ml (<300)
[2023-05-12 12:39] LABS: Methadone Screen,Urine Negative ng/ml (<300); Opiate Screen,Urine Negative ng/ml (<300)
[2023-05-12 12:40] LABS: Phencyclidine Screen,Urine Negative ng/ml (<25)
[2023-05-12 12:41] LABS: 25-OH Vitamin D, Total 32.5 ng/mL (30-100)
[2023-05-12 12:47] LABS: Benzodiazepines Screen,Urine Negative ng/ml (<200)
[2023-05-12 13:02] LABS: Prostate Specific Ag Screen 0.6 ng/ml (0.0-4.0)
[2023-05-12 13:03] LABS: Thyroid Stimulating Hormone 1.89 uIU/mL (0.465-4.68)
[2023-05-12 14:12] LABS: Hemoglobin A1C 6.3 % (4.0-6.0)
[2023-05-13 09:14] LABS: Testosterone,Total 438 ng/dL (264-916)
== END 2023-05-12 23:59 ==
LOC: LAB.DROPOF 12:08
PROVIDERS: PCP Physician Assistant; Visit Provider Physician Assistant
DX: E11.40 Type 2 diabetes mellitus with diabetic neuropathy, unspecified (principal); G47.00 Insomnia, unspecified; N52.9 Male erectile dysfunction, unspecified; Z12.5 Encounter for screening for malignant neoplasm of prostate; E66.9 Obesity, unspecified; Z68.32 Body mass index [BMI] 32.0-32.9, adult; Z79.899 Other long term (current) drug therapy; Z79.84 Long term (current) use of oral hypoglycemic drugs
CPT/HCPCS: 80053; 80061; 80307; 82043; 82306; 82570; 83036; 84403; 84443; 85025; G0103

== ENCOUNTER 2023-10-03 07:22 | Emergency (ER) | payer OTHER, SELFPAY ==
[2023-10-03 07:23] VITALS: BP 168/82; PULSE 66; RESP 13; TEMP 36.7; O2SAT 97; BMI 31.1
--- NOTE | 2023-10-03 07:24 | PC.NURSE ---
DR STAPLES AT BEDSIDE
--- NOTE | 2023-10-03 07:26 | XR_ITS ---
FINAL REPORT CLINICAL HISTORY: hand vs wall, 4th and 5th mcp pain FINDINGS: Three views show a comminuted mildly displaced boxer's fracture of the distal fifth metacarpal. No other evidence of fracture is seen. The joint spaces appear normal. IMPRESSION: Comminuted mildly displaced boxer's fracture of the distal fifth metacarpal. Reviewed, Interpreted and Dictated by Stephen Pires MD Transcribed by Lizzy Horan Authenticated and [facility]
--- NOTE | 2023-10-03 07:32 | PC.NURSE ---
PT TO XR
--- NOTE | 2023-10-03 07:35 | PC.NURSE ---
PT RETURNED FROM XR
--- NOTE | 2023-10-03 07:35 | HMH.EDGENADL ---
Discharge Plan Disposition Patient Disposition: Home, Self-Care Chief Complaint: PAIN Prescriptions Prescriptions: No Action Brilinta 90 mg tablet 90 mg PO BID Patient Comments: TAKE 1 TABLET BY MOUTH TWICE DAILY tadalafil [Cialis] 5 mg tablet 5 mg PO DAILY Qty: 10 2RF gabapentin 800 mg tablet 800 mg PO TID Qty: 90 2RF sildenafil 100 mg tablet 100 mg PO DAILY PRN (Reason: sexual activity) Qty: 10 2RF Rx Instructions: administer 30 minutes to 4 hours before activity clopidogrel [Plavix] 75 mg tablet 75 mg PO DAILY Qty: 30 11RF glipizide 10 mg tablet extended release 24hr 10 mg PO DAILY Qty: 90 3RF levocetirizine 5 mg tablet See Rx Instructions .ROUTE .COMPLEX Qty: 30 1RF Dose Instruction: TAKE 1 TABLET BY MOUTH DAILY Rx Instructions: TAKE 1 TABLET BY MOUTH DAILY bisoprolol fumarate 5 mg tablet 5 mg PO DAILY Qty: 30 11RF atorvastatin [Lipitor] 40 mg tablet 40 mg PO HS Qty: 30 11RF Januvia 100 mg tablet 100 mg PO DAILY Qty: 90 1RF losartan 50 mg tablet See Rx Instructions .ROUTE .COMPLEX Qty: 90 0RF Dose Instruction: TAKE 1 TABLET BY MOUTH DAILY Rx Instructions: TAKE 1 TABLET BY MOUTH DAILY ergocalciferol (vitamin D2) 1,250 mcg (50,000 unit) capsule See Rx Instructions .ROUTE .COMPLEX Qty: 14 3RF Dose Instruction: TAKE 1 CAPSULE BY MOUTH ONCE WEEKLY ON SAME DAY EACH WEEK Rx Instructions: TAKE 1 CAPSULE BY MOUTH ONCE WEEKLY ON SAME DAY EACH WEEK quetiapine 25 mg tablet See Rx Instructions .ROUTE .COMPLEX Qty: 90 3RF Dose Instruction: TAKE 1 TABLET BY MOUTH EVERY DAY AT BEDTIME Rx Instructions: TAKE 1 TABLET BY MOUTH EVERY DAY AT BEDTIME albuterol sulfate [Ventolin HFA] 90 mcg/actuation HFA aerosol inhaler See Rx Instructions .ROUTE .COMPLEX Qty: 18 0RF Dose Instruction: INHALE 2 PUFFS BY MOUTH EVERY 6 HOURS NEEDED Rx Instructions: INHALE 2 PUFFS BY MOUTH EVERY 6 HOURS NEEDED buspirone 5 mg tablet See Rx Instructions .ROUTE .COMPLEX Qty: 60 0RF Dose Instruction: TAKE 1 TABLET BY MOUTH TWICE DAILY Rx Instructions: TAKE 1 TABLET BY MOUTH TWICE DAILY pioglitazone 30 mg tablet See Rx Instructions .ROUTE .COMPLEX Qty: 90 3RF Dose Instruction: TAKE 1 TABLET BY MOUTH DAILY Rx Instructions: TAKE 1 TABLET BY MOUTH DAILY aspirin 81 mg capsule 81 mg PO DAILY fluticasone furoate-vilanterol [Breo Ellipta] 200-25 mcg/dose blister with device 1 inh inhalation Q24H Rx Instructions: after inhalation, rinse mouth with water and spit out; do not swallow Referrals Follow up/Referrals: Fide Zazueta PA [Primary Care Provider] - See instructions Santana Crain DO [Staff Physician] - See instructions Activity Restrictions/Add. Instructions Additional Instructions/Restrictions: At this time it was felt you are safe to be discharged home. If new or worsening symptoms please do not hesitate to return the emergency department. Please call and schedule an appointment with Dr. Crain as soon as you are able. Please take Tylenol and ibuprofen for pain control. Clinical Impressions Clinical Impression: Boxer's fracture Discharge ED Provider: Nestor Ronquillo General Adult HPI General Chief complaint: PAIN Stated complaint: AO 10/02 7 right hand pain/bruising/swelling Time Seen by Provider: 10/03/23 07:26 Mode of Arrival: Ambulatory Source of Information: Patient Limitations: No Limitations Description of Symptoms (Recalled from ER Triage Doc. by RN): pt presents to ED with right hand pain and swelling. pt reports that he hit a wall approx. 30 mins ago. pt is right hand dominant. History of Present Illness HPI narrative: Patient is a 47-year-old right-handed male who presents emergency department for evaluation of traumatic injury sustained punching a wall. Onset was acute, 30 minutes prior to arrival. Patient is having ulnar sided hand pain across his fourth and fifth MCP joints. Patient is able to range his fingers, no other traumatic complaints at this time. Related Data Home Medications Medication Instructions Recorded Confirmed aspirin 81 mg capsule 81 mg PO DAILY Heart health 10/06/22 08/11/23 fluticasone furoate 200 1 inh inhalation Q24H Breathing 10/09/22 08/11/23 mcg-vilanterol 25 mcg/dose problems inhalation powder (Breo Ellipta) ticagrelor 90 mg tablet (Brilinta) 90 mg PO BID 05/12/23 08/11/23 Previous Rx's Medication Instructions Recorded clopidogrel 75 mg tablet (Plavix) 75 mg PO DAILY #30 tabs 10/12/22 levocetirizine 5 mg tablet See Rx Instructions .Route 01/04/23 .COMPLEX #30 tabs glipizide 10 mg tablet, extended 10 mg PO DAILY #90 tabs 01/11/23 release 24 hr atorvastatin 40 mg tablet (Lipitor) 40 mg PO HS Cholesterol #30 tabs 05/02/23 bisoprolol fumarate 5 mg tablet 5 mg PO DAILY Heart rhythm #30 tabs 05/02/23 tadalafil 5 mg tablet (Cialis) 5 mg PO DAILY sexual activity #10 05/12/23 tabs sitagliptin phosphate 100 mg 100 mg PO DAILY Diabetes #90 tabs 05/31/23 tablet (Januvia) losartan 50 mg tablet See Rx Instructions .Route 06/30/23 .COMPLEX #90 tabs ergocalciferol (vitamin D2) 1,250 See Rx Instructions .Route 07/11/23 mcg (50,000 unit) capsule .COMPLEX #14 caps quetiapine 25 mg tablet See Rx Instructions .Route 07/11/23 .COMPLEX #90 tabs albuterol sulfate 90 mcg/actuation See Rx Instructions .Route 07/19/23 aerosol inhaler (Ventolin HFA) .COMPLEX #18 grams buspirone 5 mg tablet See Rx Instructions .Route 08/09/23 .COMPLEX #60 tabs gabapentin 800 mg tablet 800 mg PO TID #90 tabs 08/11/23 sildenafil 100 mg tablet 100 mg PO DAILY PRN sexual 08/11/23 activity #10 tabs pioglitazone 30 mg tablet See Rx Instructions .Route 09/23/23 .COMPLEX #90 tabs Allergies Allergy/AdvReac Type Severity Reaction Status Date / Time No Known Allergies Allergy Verified 08/11/23 15:55 [facility] Disclaimer: The information contained in this section may have been updated after the patient was seen, as this information can be updated by other users. Medical History CAD (coronary atherosclerotic disease) Colloid cyst of third ventricle Crescendo angina Diabetes mellitus Hyperlipidemia Hypertension NSTEMI (non-ST elevated myocardial infarction) Numbness and tingling of right arm Social History Smoking Status: Current every day smoker tobacco type: cigarettes packs per day: 2 alcohol intake: current alcohol intake frequency: a few times a week current occupational status: other Travel in the last 8 weeks: None ROS Obtained: Yes Systems reviewed as appropriate & no additional complaints except as documented Physical Exam General General appearance: alert and in no apparent distress Head Head exam: atraumatic and normocephalic Eye Eye exam: Present PERRL ENT ENT exam: Present mucous membranes moist Neck Neck exam: Present normal inspection Chest Chest inspection: Present normal inspection and symmetric chest wall rise Respiratory Respiratory exam: Absent respiratory distress Cardiovascular Cardiovascular exam: Present regular rate and normal rhythm Abdominal Exam Abdominal exam: Present soft Extremities Exam Extremities exam: Present other (Swelling and tenderness over the ulnar aspect of the right hand as well as the fourth and fifth MCP joints. Distally neurovascularly intact., Palpable right radial pulse.) Neurological Exam Neurological exam: Present alert Psychiatric Psychiatric exam: Present normal affect Skin Skin exam: Present warm and dry Medical Decision Making Simeon Inquiry Pt receiving controlled substance: No Vital Signs: 10/03/23 07:23 10/03/23 08:01 Temperature 98.1 F Temperature Source Oral Pulse Rate 65 Pulse Rate [Left Radial] 66 Respiratory Rate 13 Blood Pressure 146/98 H Blood Pressure [Right Arm] 168/82 H Blood Pressure Mean 107 Blood Pressure Mean [Right Arm] 110 02 Sat by Pulse Oximetry 97 97 Oxygen Delivery Method Room Air Room Air Orders (Tests/Meds): ED MEDICATIONS Discontinued Medications Generic Name Dose Route Start Last Admin Trade Name Dickson PRN Reason Stop Dose Admin Acetaminophen 1,000 mg 10/03/23 07:26 10/03/23 07:48 Acetaminophen 500mg Tab PO 10/03/23 07:27 1,000 mg ONCE ONE Administration Ibuprofen 600 mg 10/03/23 07:26 10/03/23 07:48 Ibuprofen 600 Mg Tablet PO 10/03/23 07:27 600 mg ONCE ONE Administration ORDERS Category Date Time Status Hand XR right minimum 3 views [XR hand RT min 3V] Stat Exams 10/03/23 07:26 Completed Medical Decision Narrative: In summary patient is a 47-year-old male with past medical history described above who presents emergency department for evaluation of traumatic injury sustained punching a wall. Patient is hemodynamically stable and nontoxic-appearing upon arrival, afebrile. Differential diagnosis includes fracture, muscle strain, among others. No concern for fight bite. Workup will be conducted with plain film of the right hand. Initial inventions include Tylenol and ibuprofen. X-ray informally interpreted by me, boxer's fracture. Formal read shows comminuted mildly displaced boxer's fracture of the distal fifth metacarpal. Case was discussed with orthopedics Matt Cordoba, we are both in agreement that this is borderline warranting reduction however given that it is comminuted and not overtly in need of a reduction ulnar gutter splint is appropriate at this time. Ulnar gutter splint placed by ancillary staff supervised by me. Patient tolerated procedure well. There were no immediate complications. Patient will follow-up with orthopedics on an outpatient basis. Procedure: Procedure was ulnar gutter splint. Procedure performed by Stefania Herrera under the supervision of . Ulnar gutter splint placed with success. Distal capillary refill preserved after splint is placed. Patient tolerated the procedure well. There were no immediate complications. Critical Care Critical Care Time Critical Care Time: No
[2023-10-03] MEDS: IBUPROFEN 600 MG TABLET PO (07:48)
[2023-10-03] MEDS: ACETAMINOPHEN 500MG TAB 1000 MG PO (07:48)
[2023-10-03 08:01] VITALS: BP 146/98; PULSE 65; O2SAT 97
[2023-10-03 08:32] VITALS: BP 146/80; PULSE 61; O2SAT 96
--- NOTE | 2023-10-03 08:43 | PC.NURSE ---
dr hunt speaking with Matt elliott at [facility] office
--- NOTE | 2023-10-03 08:48 | PC.NURSE ---
dr hunt at bedside
[2023-10-03] MEDS: OXYCODONE 5MG IMMEDIATE RELEASE TABLET 5 MG PO (09:10)
--- NOTE | 2023-10-03 09:10 | PC.NURSE ---
ulnar gutter splint applied to right hand. Pt tolerated well.
[2023-10-03 09:14] VITALS: BP 160/90; PULSE 59; RESP 18; TEMP 36.7; O2SAT 99
== END 2023-10-03 09:17 | disposition home or self-care (01) ==
PROVIDERS: Emergency Provider Emergency Medicine; PCP Physician Assistant
DX: S62.316A Displaced fracture of base of fifth metacarpal bone, right hand, initial encounter for closed fracture (principal); W22.8XXA Striking against or struck by other objects, initial encounter; F17.210 Nicotine dependence, cigarettes, uncomplicated
CPT/HCPCS: 29125; 73130; 99283

== ENCOUNTER 2023-10-04 00:33 | Emergency (ER) | payer OTHER, SELFPAY ==
[2023-10-04 00:34] VITALS: BP 165/99; PULSE 80; RESP 20; TEMP 37.1; O2SAT 97; BMI 30.5
--- NOTE | 2023-10-04 01:01 | XR_ITS ---
PROCEDURE INFORMATION: Exam: XR Right Hand Exam date and time: 10/04/2023 1:03 AM Age: 47 years old Clinical indication: Pain; Hand; Right; Additional info: Fracture, re-injured TECHNIQUE: Imaging protocol: Radiologic exam of the right hand. Views: 3 or more views. Total images: 3 COMPARISON: CR XR HAND RT MIN 3V 10/03/2023 7:22 AM FINDINGS: Bones/joints: Acute comminuted boxer type fracture head neck of the 5th metacarpal, not significantly changed from prior exam. No joint dislocation. No additional acute superimposed osseous abnormalities. No concerning bone lesions. Scattered mild degenerative changes of the interphalangeal joints, greatest at the DIP joint of the 2nd and 3rd fingers. Soft tissues: Mild soft tissue swelling at the fracture site. IMPRESSION: Stable appearing acute comminuted boxer's type fracture of the 5th metacarpal.
--- NOTE | 2023-10-04 01:04 | HMH.EDGENADL ---
Discharge Plan Disposition Patient Disposition: Home, Self-Care Prescriptions Prescriptions: No Action Brilinta 90 mg tablet 90 mg PO BID Patient Comments: TAKE 1 TABLET BY MOUTH TWICE DAILY tadalafil [Cialis] 5 mg tablet 5 mg PO DAILY Qty: 10 2RF gabapentin 800 mg tablet 800 mg PO TID Qty: 90 2RF sildenafil 100 mg tablet 100 mg PO DAILY PRN (Reason: sexual activity) Qty: 10 2RF Rx Instructions: administer 30 minutes to 4 hours before activity clopidogrel [Plavix] 75 mg tablet 75 mg PO DAILY Qty: 30 11RF glipizide 10 mg tablet extended release 24hr 10 mg PO DAILY Qty: 90 3RF levocetirizine 5 mg tablet See Rx Instructions .ROUTE .COMPLEX Qty: 30 1RF Dose Instruction: TAKE 1 TABLET BY MOUTH DAILY Rx Instructions: TAKE 1 TABLET BY MOUTH DAILY bisoprolol fumarate 5 mg tablet 5 mg PO DAILY Qty: 30 11RF atorvastatin [Lipitor] 40 mg tablet 40 mg PO HS Qty: 30 11RF Januvia 100 mg tablet 100 mg PO DAILY Qty: 90 1RF losartan 50 mg tablet See Rx Instructions .ROUTE .COMPLEX Qty: 90 0RF Dose Instruction: TAKE 1 TABLET BY MOUTH DAILY Rx Instructions: TAKE 1 TABLET BY MOUTH DAILY ergocalciferol (vitamin D2) 1,250 mcg (50,000 unit) capsule See Rx Instructions .ROUTE .COMPLEX Qty: 14 3RF Dose Instruction: TAKE 1 CAPSULE BY MOUTH ONCE WEEKLY ON SAME DAY EACH WEEK Rx Instructions: TAKE 1 CAPSULE BY MOUTH ONCE WEEKLY ON SAME DAY EACH WEEK quetiapine 25 mg tablet See Rx Instructions .ROUTE .COMPLEX Qty: 90 3RF Dose Instruction: TAKE 1 TABLET BY MOUTH EVERY DAY AT BEDTIME Rx Instructions: TAKE 1 TABLET BY MOUTH EVERY DAY AT BEDTIME albuterol sulfate [Ventolin HFA] 90 mcg/actuation HFA aerosol inhaler See Rx Instructions .ROUTE .COMPLEX Qty: 18 0RF Dose Instruction: INHALE 2 PUFFS BY MOUTH EVERY 6 HOURS NEEDED Rx Instructions: INHALE 2 PUFFS BY MOUTH EVERY 6 HOURS NEEDED buspirone 5 mg tablet See Rx Instructions .ROUTE .COMPLEX Qty: 60 0RF Dose Instruction: TAKE 1 TABLET BY MOUTH TWICE DAILY Rx Instructions: TAKE 1 TABLET BY MOUTH TWICE DAILY pioglitazone 30 mg tablet See Rx Instructions .ROUTE .COMPLEX Qty: 90 3RF Dose Instruction: TAKE 1 TABLET BY MOUTH DAILY Rx Instructions: TAKE 1 TABLET BY MOUTH DAILY aspirin 81 mg capsule 81 mg PO DAILY fluticasone furoate-vilanterol [Breo Ellipta] 200-25 mcg/dose blister with device 1 inh inhalation Q24H Rx Instructions: after inhalation, rinse mouth with water and spit out; do not swallow Referrals Follow up/Referrals: Fide Zazueta PA [Primary Care Provider] - See instructions Activity Restrictions/Add. Instructions Additional Instructions/Restrictions: Please keep splint on, do not get wet, do not take. Take Tylenol and ibuprofen as needed for pain. Please follow-up with previously scheduled orthopedic surgery appointment. Clinical Impressions Clinical Impression: Boxer's fracture Qualifiers: Encounter type: initial encounter Fracture type: closed Qualified Code(s): S62.339A - Displaced fracture of neck of unspecified metacarpal bone, initial encounter for closed fracture Discharge ED Provider: Marlon Dietz Adult HPI General Chief complaint: Extremity Injury, Upper Stated complaint: injury right hand Time Seen by Provider: 10/04/23 00:35 Mode of Arrival: Ambulatory Source of Information: Patient and Spouse Limitations: No Limitations Description of Symptoms (Recalled from ER Triage Doc. by RN): Patient was seen 10/02 for right hand injury. Diagnosed with a boxer's fracture, placed in an ulnar gutter splint and discharged with instruction to follow up with Dr. Crain. Patient reports that he began to have increased pain and attempted to adjust the splint unsuccessfully. Patient had completely removed splint and attempted to self reapply. Patient reports increased swelling and pain. Last dose of tylenol and motrin at 8pm. History of Present Illness HPI narrative: 47-year-old male presents to the ER for symptoms. He reports that he punched a wall. He was seen in the ER this morning and was told he had a boxer's fracture. He was placed into a splint and discharged. He took the splint off and settle, reinjuring his right hand. He reports that the pain and swelling are worsen than when he came in earlier today. He denies any other injuries or pain related to the fall today. Related Data Home Medications Medication Instructions Recorded Confirmed aspirin 81 mg capsule 81 mg PO DAILY Heart health 10/06/22 08/11/23 fluticasone furoate 200 1 inh inhalation Q24H Breathing 10/09/22 08/11/23 mcg-vilanterol 25 mcg/dose problems inhalation powder (Breo Ellipta) ticagrelor 90 mg tablet (Brilinta) 90 mg PO BID 05/12/23 08/11/23 Previous Rx's Medication Instructions Recorded clopidogrel 75 mg tablet (Plavix) 75 mg PO DAILY #30 tabs 10/12/22 levocetirizine 5 mg tablet See Rx Instructions .Route 01/04/23 .COMPLEX #30 tabs glipizide 10 mg tablet, extended 10 mg PO DAILY #90 tabs 01/11/23 release 24 hr atorvastatin 40 mg tablet (Lipitor) 40 mg PO HS Cholesterol #30 tabs 05/02/23 bisoprolol fumarate 5 mg tablet 5 mg PO DAILY Heart rhythm #30 tabs 05/02/23 tadalafil 5 mg tablet (Cialis) 5 mg PO DAILY sexual activity #10 05/12/23 tabs sitagliptin phosphate 100 mg 100 mg PO DAILY Diabetes #90 tabs 05/31/23 tablet (Januvia) losartan 50 mg tablet See Rx Instructions .Route 06/30/23 .COMPLEX #90 tabs ergocalciferol (vitamin D2) 1,250 See Rx Instructions .Route 07/11/23 mcg (50,000 unit) capsule .COMPLEX #14 caps quetiapine 25 mg tablet See Rx Instructions .Route 07/11/23 .COMPLEX #90 tabs albuterol sulfate 90 mcg/actuation See Rx Instructions .Route 07/19/23 aerosol inhaler (Ventolin HFA) .COMPLEX #18 grams buspirone 5 mg tablet See Rx Instructions .Route 08/09/23 .COMPLEX #60 tabs gabapentin 800 mg tablet 800 mg PO TID #90 tabs 08/11/23 sildenafil 100 mg tablet 100 mg PO DAILY PRN sexual 08/11/23 activity #10 tabs pioglitazone 30 mg tablet See Rx Instructions .Route 09/23/23 .COMPLEX #90 tabs Allergies Allergy/AdvReac Type Severity Reaction Status Date / Time No Known Allergies Allergy Verified 08/11/23 15:55 [facility] Disclaimer: The information contained in this section may have been updated after the patient was seen, as this information can be updated by other users. Medical History CAD (coronary atherosclerotic disease) Colloid cyst of third ventricle Crescendo angina Diabetes mellitus Hyperlipidemia Hypertension NSTEMI (non-ST elevated myocardial infarction) Numbness and tingling of right arm Social History Smoking Status: Current every day smoker tobacco type: cigarettes packs per day: 2 alcohol intake: current alcohol intake frequency: a few times a week current occupational status: other Travel in the last 8 weeks: None ROS Obtained: Yes All systems reviewed & no additional complaints except as documented Physical Exam General General appearance: alert and in no apparent distress Head Head exam: atraumatic and normocephalic Eye Eye exam: Present normal appearance, PERRL and EOMI ENT ENT exam: Present normal oropharynx and normal external ear exam Neck Neck exam: Present normal inspection and full ROM Chest Chest inspection: Present normal inspection and symmetric chest wall rise; Absent tenderness Respiratory Respiratory exam: Present normal lung sounds bilaterally; Absent respiratory distress Cardiovascular Cardiovascular exam: Present regular rate and normal rhythm Abdominal Exam Abdominal exam: Present soft and distention; Absent tenderness or guarding Extremities Exam Extremities exam: Present other (Mild erythema and swelling over the dorsum of the right fourth and fifth digits. Patient with associated tenderness. Normal distal capillary refill and sensation, no significant noted.) Back Exam Back exam: Present normal inspection; Absent tenderness Neurological Exam Neurological exam: Present alert and oriented X3; Absent motor sensory deficit Psychiatric Psychiatric exam: Present normal affect and normal mood Skin Skin exam: Present warm, dry and normal color Lymphatic Lymphatic Findings: no adenopathy Medical Decision Making Medical Records Medical records reviewed: Yes I reviewed the patient's medical records. Simeon Inquiry Pt receiving controlled substance: No Simeon was queried for this patient: No Vital Signs: 10/04/23 00:34 10/04/23 03:04 Temperature 98.7 F 98.1 F Temperature Source Oral Oral Pulse Rate 88 Pulse Rate [Left Radial] 80 Respiratory Rate 20 20 Blood Pressure 165/74 H Blood Pressure [Left Arm] 165/99 H Blood Pressure Mean [Left Arm] 121 Blood Pressure Source Automatic Cuff Blood Pressure Source [Left Arm] Automatic Cuff Blood Pressure Position Sitting Blood Pressure Position [Left Arm] Sitting 02 Sat by Pulse Oximetry 97 Oxygen Delivery Method Room Air Room Air Lab Data Lab results reviewed: Yes I reviewed the patient's lab results. Orders (Tests/Meds): ED MEDICATIONS Discontinued Medications Generic Name Dose Route Start Last Admin Trade Name Dickson PRN Reason Stop Dose Admin Acetaminophen 1,000 mg 10/04/23 01:01 10/04/23 01:20 Acetaminophen 500mg Tab PO 10/04/23 01:02 1,000 mg ONCE ONE Administration Ketorolac Tromethamine 30 mg 10/04/23 01:01 10/04/23 01:20 Ketorolac 30mg/Ml Vial IM 10/04/23 01:02 30 mg ONCE ONE Administration Lidocaine/Epinephrine 1 ml 10/04/23 02:51 10/04/23 02:53 Lidocaine 1% W/Epi 1:100,000 20ml Vial SQ 10/04/23 02:52 1 ml ONCE ONE Administration Oxycodone HCl 5 mg 10/04/23 02:31 10/04/23 02:50 Oxycodone 5mg Immediate Release Tablet PO 10/04/23 02:32 5 mg ONCE ONE Administration ORDERS Category Date Time Status Hand XR right 2 views [XR hand RT 2V] Stat Exams 10/04/23 02:52 Completed Hand XR right minimum 3 views [XR hand RT min 3V] Stat Exams 10/04/23 01:01 Completed Medical Decision Narrative: 47-year-old male presents to the ER for the second time today with right boxer's fracture, for some reason he took off his splint from earlier today and then proceeded to fall, again injuring his right hand.. History was obtained interactive discussion with patient, patient's family. On arrival, patient is [afebrile, hemodynamically stable, satting appropriately, alert, oriented x4, GCS 15], moving all extremities spontaneously. Full physical exam performed and significant for right hand pain and swelling as documented above, normal neurovascular exam Differential includes but is not limited to fracture, open fracture, dislocation, malrotation. Patient was given Tylenol, Toradol, oxycodone for symptomatic management and correction of underlying abnormalities. Workup initiated including radiographs of the right hand. On re-evaluation, patient [remains afebrile, HD stable.] Imaging independently interpreted by me and significant for what appears to be slight worsening of the angle of the comminuted fifth metacarpal fracture. See radiology read for full review of final results. Given patient history, exam and workup, patient's presentation most likely represents boxer's fracture. Patient was given a hematoma block and reduction was attempted and patient was placed in a plaster ulnar gutter splint. Repeat x-ray obtained and shows satisfactory positioning of the fracture. I am not convinced that the patient will keep the splint on, though I stressed to him the importance of it. He has previously scheduled follow-up with orthopedic surgery. He is discharged in stable condition. Procedures Risk/Benefits of Procedure(s) Were Explained: Yes Nerve Block Nerve Block 1: Local Anesthetic: lidocaine 1% Amount of anesthesia used (mL): 3 Side: Right Nerve Blocks: hematoma block (Fifth metacarpal fracture) Procedure Successful: Yes Patient Tolerated Procedure: well and no complications Orthopedic Fracture Reduction Fracture #1: Side: right Fracture Reduction Location: metacarpal (5th) Analgesia: hematoma block Technique: direct manipulation Post Reduction X-rays Demonstrate: acceptable reduction Post-reduction neuro exam: intact Post-reduction vascular exam: intact Splint Applied: Yes Patient Tolerated Procedure: well and no complications Additional Comments: Procedure was performed at bedside by me Orthopedic Splinting/Casting Injury #1: Side: right Upper Extremity Injury Location: hand Upper Extremity Immobilizer: ulnar gutter Additional Comments: Performed at bedside by me Post Cast/Splinting Neuro Status: intact Post Cast/Splinting Vasc Status: intact Critical Care Critical Care Time Critical Care Time: No
[2023-10-04] MEDS: KETOROLAC 30MG/ML VIAL 30 MG IM (01:20)
[2023-10-04] MEDS: ACETAMINOPHEN 500MG TAB 1000 MG PO (01:20)
--- NOTE | 2023-10-04 02:28 | PC.NURSE ---
Provider at bedside with rehabilitation teacher Marly Rosado for reduction and splint application.
[2023-10-04] MEDS: OXYCODONE 5MG IMMEDIATE RELEASE TABLET 5 MG PO (02:50)
--- NOTE | 2023-10-04 02:52 | XR_ITS ---
PROCEDURE INFORMATION: Exam: XR Right Hand Exam date and time: 10/04/2023 2:47 AM Age: 47 years old Clinical indication: Pain; Hand; Right; Additional info: Post splint TECHNIQUE: Imaging protocol: Radiologic exam of the right hand. Views: 1 or 2 views. Total images: 2 COMPARISON: CR XR HAND RT MIN 3V 10/04/2023 1:03 AM FINDINGS: Bones/joints: Stable comminuted and mildly displaced boxer fracture of the 5th metacarpal. Fracture alignment is unchanged. No joint dislocation. No acute superimposed osseous abnormality. Soft tissues: Mild soft tissue swelling at the fracture site. Other findings: Status post closed reduction with application of a plaster cast. IMPRESSION: Satisfactory closed reduction radiograph.
[2023-10-04] MEDS: LIDOCAINE 1% W/EPI 1:100,000 20ML VIAL SQ (02:53)
[2023-10-04 03:04] VITALS: BP 165/74; PULSE 88; RESP 20; TEMP 36.7; O2SAT 97
== END 2023-10-04 03:06 | disposition home or self-care (01) ==
PROVIDERS: Emergency Provider Emergency Medicine; PCP Physician Assistant
DX: M79.641 Pain in right hand; S62.336A Displaced fracture of neck of fifth metacarpal bone, right hand, initial encounter for closed fracture; W22.8XXA Striking against or struck by other objects, initial encounter; F17.210 Nicotine dependence, cigarettes, uncomplicated
CPT/HCPCS: 29125; 73120; 73130; 96372; 99283; J1885

== ENCOUNTER 2023-10-27 08:40 | Outpatient (CLI) | payer OTHER, SELFPAY ==
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
== END 2023-10-27 23:59 | disposition home or self-care (01) ==
LOC: RAD 08:41
PROVIDERS: PCP Physician Assistant; Visit Provider Physician Assistant Surgical
DX: M79.641 Pain in right hand (principal); S62.336A Displaced fracture of neck of fifth metacarpal bone, right hand, initial encounter for closed fracture
CPT/HCPCS: 73120

== ENCOUNTER 2023-11-14 15:36 | Outpatient (CLI) | payer OTHER, SELFPAY | END 2023-11-14 23:59 | disposition home or self-care (01) | LOC: LAB.DROPOF 11-15 15:37 | PROVIDERS: PCP Physician Assistant; Visit Provider Physician Assistant | DX: R30.9 Painful micturition, unspecified (principal) | CPT/HCPCS: 87086 ==

== ENCOUNTER 2023-11-22 13:32 | Outpatient (CLI) | payer OTHER, SELFPAY ==
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
== END 2023-11-22 23:59 | disposition home or self-care (01) ==
LOC: RAD 13:32
PROVIDERS: PCP Physician Assistant; Visit Provider Physician Assistant Surgical
DX: S62.339A Displaced fracture of neck of unspecified metacarpal bone, initial encounter for closed fracture (principal)
CPT/HCPCS: 73130

== ENCOUNTER 2024-04-05 19:51 | Emergency (ER) | payer OTHER, SELFPAY ==
[2024-04-05 19:52] VITALS: BP 172/84; PULSE 87; RESP 20; TEMP 36.8; O2SAT 97; BMI 30.5
[2024-04-05 20:00] VITALS: BP 172/94; PULSE 75; O2SAT 98
--- NOTE | 2024-04-05 20:02 | PC.NURSE ---
Placed pt on 2L of O2 per MD
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
[2024-04-05] MEDS: TET/DIPHTH/PERT-ADULT 0.5ML SYRINGE 0.5 ML IM (20:52)
[2024-04-05 22:20] LABS: HIV Combo NEGATIVE (Negative)
[2024-04-05 23:20] VITALS: BP 121/73; PULSE 68; RESP 16; TEMP 36.8; O2SAT 98
[2024-04-07 08:14] LABS: HCV Ab Non Reactive (Non Reactive)
== END 2024-04-05 23:24 | disposition home or self-care (01) ==
PROVIDERS: Emergency Provider Emergency Medicine; PCP Family Medicine
DX: T20.00XA Burn of unspecified degree of head, face, and neck, unspecified site, initial encounter (principal); Z23 Encounter for immunization; X08.8XXA Exposure to other specified smoke, fire and flames, initial encounter; Y93.89 Activity, other specified; Y92.89 Other specified places as the place of occurrence of the external cause
CPT/HCPCS: 71045; 86803; 87389; 90471; 90715; 99283

== ENCOUNTER 2024-05-07 14:04 | Outpatient (CLI) | payer OTHER, SELFPAY ==
[2024-05-07 18:11] LABS: Basophils % 0.4 % (0.1-2.0); Eosinophils # 0.3 K/mm3 (0.0-0.4); Lymphocytes # 2.3 K/mm3 (0.7-4.5); Red Blood Count 5.34 M/mm3 (4.60-6.20); White Blood Count 9.5 K/mm3 (4.8-10.8)
[2024-05-07 18:41] LABS: Albumin Level 4.2 g/dl (3.5-5.0); Chloride 94 mmol/L (98-107); Potassium 4.3 mmoL/L (3.5-5.1); Sodium 128 mmol/L (136-145)
[2024-05-07 18:44] LABS: Alanine Aminotransferase 20 U/L (12-78); Albumin/Globulin Ratio 1.8 (1.1-1.8); Alkaline Phosphatase 70 U/L (38-126); Anion Gap 11.3 mEq/L (5-15); Aspartate Amino Transferase 22 U/L (17-59); Bilirubin,Total 0.7 mg/dl (0.2-1.3); Blood Urea Nitrogen 4 mg/dl (9-20); Carbon Dioxide 27 mmol/L (22.0-30.0); Chol/HDL Ratio 7.6 (1-3.5); Cholesterol 190 mg/dl (140-200); Estimated Glomerular Filt Rate 103 ml/min (>60); GFR (African American) 124 ML/MIN (>60); Globulin 2.4 g/dL (1.3-3.2); Glucose 242 mg/dl (74-100); HDL Cholesterol 25 mg/dl (40-60); Total Protein,Serum 6.6 g/dl (6.3-8.2); Triglycerides 211 mg/dl (30-150); VLDL Cholesterol 42 mg/dL (0-40)
[2024-05-07 18:54] LABS: 25-OH Vitamin D, Total 24.5 ng/mL (30-100)
[2024-05-07 18:58] LABS: Direct LDL Cholesterol 121.88 mg/dL (100-129)
[2024-05-07 19:31] LABS: Eosinophils % 3.1 % (0.1-12.0); Hematocrit 48.6 % (42.0-52.0); Hemoglobin 16.6 g/dL (14.1-18.0); Lymphocytes % 23.9 % (10-50); Mean Corpuscular HGB Conc 34.2 g/dL (31.8-35.4); Mean Corpuscular Hemoglobin 31.1 pg (27.0-31.2); Mean Platelet Volume 10.5 fl (7.4-10.4); Monocytes # 0.5 K/mm3 (0.1-1.0); Monocytes % 5.4 % (1.7-9.3); Neutrophils # 6.4 K/mm3 (1.8-7.8); Platelet Count 261 K/mm3 (142-424); Red Cell Distribution Width 14.3 % (11.5-17.5)
[2024-05-07 19:59] LABS: Hemoglobin A1C 7.4 % (4.0-6.0)
[2024-05-07 20:05] LABS: Thyroid Stimulating Hormone 1.86 uIU/mL (0.465-4.68)
== END 2024-05-07 23:59 ==
LOC: LAB.DROPOF 05-08 08:09
PROVIDERS: PCP Family Medicine; Visit Provider Family Medicine
DX: E55.9 Vitamin D deficiency, unspecified (principal); E11.40 Type 2 diabetes mellitus with diabetic neuropathy, unspecified; Z79.84 Long term (current) use of oral hypoglycemic drugs
CPT/HCPCS: 80053; 80061; 82306; 83036; 84443; 85025

== ENCOUNTER 2024-09-21 16:34 | Emergency (ER) | payer OTHER, SELFPAY ==
[2024-09-21] VITALS (7 sets, daily range): BP systolic 141–179; BP diastolic 85–99; PULSE 68–83; RESP 16–29; TEMP 36.5–36.8; O2SAT 93–98; BMI 30.7
--- OUTSIDE RECORDS SUMMARY | 2024-09-21 16:45 | XMS_ITS | Clinical Summary ---
Author Organization Healthcare Address [address] [place] [address] Care Team Providers Care Senior Interactive Developer Name Role Phone Matheus Grant MD Primary Care Provider [phone] Family History Medical History Relation Name Comments Throat cancer Brother Diabetes Mother Relation Name Status Comments Brother Mother Social History Tobacco Use Types Packs/Day Years Used Date Smoking Tobacco: Every Day Alcohol Use Standard Drinks/Week Comments No 0 (1 standard drink = 0.6 oz pur e alcohol) Sex and Gender Information Value Date Recorded Sex Assigned at Not on file Legal Sex Male 8:54 PM EDT Gender Identity Not on file Sexual Orientation Not on file Plan of Treatment Not on file Care Teams Senior Interactive Developer Relationship Specialty Start Date End Date Matheus Grant MD [address] [place] [address] PCP - General 08/29/20
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
--- NOTE | 2024-09-21 17:13 | CT_ITS ---
PROCEDURE INFORMATION: Exam: CTA Abdomen and Pelvis With Contrast Exam date and time: 09/21/2024 5:43 PM Age: 48 years old Clinical indication: Injury or trauma; Fall; Additional info: Trauma, critical injury suspected TECHNIQUE: Imaging protocol: Computed tomographic angiography of the abdomen and pelvis with contrast. Exam focused on the arteries. 3D rendering (Not supervised by radiologist): MIP and/or 3D reconstructed images were created by the technologist. Radiation optimization: All CT scans at this facility use at least one of these dose optimization techniques: automated exposure control; mA and/or kV adjustment per patient size (includes targeted exams where dose is matched to clinical indication); or iterative reconstruction. Contrast material: ISOVUE; Contrast volume: 80 ml; Contrast route: INTRAVENOUS (IV); COMPARISON: CT BONY PELVIS 09/21/2024 5:37 PM FINDINGS: Aorta: Moderate amount of calcific arterial atherosclerosis throughout the aorta. No abdominal aortic aneurysm or dissection. Celiac trunk and mesenteric arteries: No aneurysm, occlusion, or significant stenosis. Renal arteries: No aneurysm, occlusion, or significant stenosis. Right iliac arteries: No aneurysm, occlusion, or significant stenosis. Left iliac arteries: No aneurysm, occlusion, or significant stenosis. Liver: No evidence of liver laceration. Gallbladder and biliary ducts: Unremarkable. Pancreas: Unremarkable. Spleen: Punctate calcifications in the spleen compatible with chronic sequelae of prior granulomatous disease. No evidence of splenic laceration. Adrenal glands: Unremarkable. Kidneys and ureters: No evidence of acute kidney injury. Normal symmetric renal nephrograms with normal symmetric excretion of intravenous contrast. No evidence of blood products within the bilateral urinary collecting systems. Simple renal cyst in the right kidney incidentally noted. Stomach and bowel: Unremarkable. Appendix: No evidence of appendicitis. Intraperitoneal space: No free fluid. No pneumoperitoneum. Lymph nodes: Unremarkable. Urinary bladder: Fluid-fluid level in the urinary bladder with anti-dependent excreted intravenous contrast overlying complex fluid that may represent urinary sediment vs hematocrit. No evidence of a bladder wall laceration, hematoma or edema. Reproductive: Mildly enlarged prostate, measuring 4.5 cm in transverse axis. Bones/joints: Acute mildly displaced fractures in the left transverse processes of L1-L4. No other acute osseous abnormality in the abdomen or pelvis. Soft tissues: Unremarkable. IMPRESSION: 1. No evidence of acute traumatic intra-abdominal injury. 2. Fluid-fluid level in the urinary bladder with anti-dependent excreted intravenous contrast overlying complex fluid that may represent urinary sediment vs hematocrit, age indeterminate. No evidence of traumatic injury or other acute pathology in the upper or lower urinary tract. Please correlate with urinalysis. 3. Acute mildly displaced fractures in the left transverse processes of L1-L4. No other acute osseous abnormality in the abdomen or pelvis. 4. Mildly enlarged prostate. 5. Additional chronic and/or non-acute ancillary findings are detailed above. 6. Concurrent chest CTA reported separately.
--- NOTE | 2024-09-21 17:13 | CT_ITS ---
PROCEDURE INFORMATION: Exam: CTA Chest With Contrast Exam date and time: 09/21/2024 5:43 PM Age: 48 years old Clinical indication: Injury or trauma; Additional info: Trauma, critical injury suspected. Fall from ladder TECHNIQUE: Imaging protocol: Computed tomographic angiography of the chest with contrast. Exam focused on the arteries. 3D rendering (Not supervised by radiologist): MIP and/or 3D reconstructed images were created by the technologist. Radiation optimization: All CT scans at this facility use at least one of these dose optimization techniques: automated exposure control; mA and/or kV adjustment per patient size (includes targeted exams where dose is matched to clinical indication); or iterative reconstruction. Contrast material: ISOVUE 370; Contrast volume: 80 ml; Contrast route: INTRAVENOUS (IV); COMPARISON: CT ANGIO CHEST PE PROTOCOL 10/09/2022 9:37 PM FINDINGS: Pulmonary arteries: No pulmonary emboli. Aorta: Stable fusiform aneurysmal dilation of the ascending aorta measuring 4.4 cm in diameter. Lungs: [id number]-[id number] paraseptal and centrilobular emphysematous changes in the lung apices, right greater than left. No evidence of pulmonary contusion. No pulmonary edema. Few calcified pulmonary granulomata consistent with chronic sequelae of prior granulomatous disease. Pleural spaces: No pneumothorax. No pleural effusion. Heart: No cardiomegaly. No pericardial effusion. Coronary arteries: Three-vessel calcific coronary artery disease, unchanged. Lymph nodes: Calcified mediastinal lymph nodes consistent with chronic sequelae of prior granulomatous disease. Bones/joints: No acute osseous abnormality. Soft tissues: Unremarkable. IMPRESSION: 1. No acute findings in the chest. 2. Stable fusiform aneurysmal dilation of the ascending aorta measuring 4.4 cm in diameter. 3. Emphysema. 4. Additional chronic ancillary findings are detailed above. 5. Concurrent CTA abdomen/pelvis reported separately.
--- NOTE | 2024-09-21 17:13 | CT_ITS ---
PROCEDURE INFORMATION: Exam: CT Head Without Contrast Exam date and time: 09/21/2024 5:26 PM Age: 48 years old Clinical indication: Injury or trauma; Additional info: Trauma, critical injury suspected. Fall from ladder TECHNIQUE: Imaging protocol: Computed tomography of the head without contrast. Radiation optimization: All CT scans at this facility use at least one of these dose optimization techniques: automated exposure control; mA and/or kV adjustment per patient size (includes targeted exams where dose is matched to clinical indication); or iterative reconstruction. COMPARISON: MR HEAD/BRAIN WO/W CON 04/13/2022 9:09 AM FINDINGS: Brain: Age-related volume loss. Decreased attenuation of the supratentorial white matter is likely secondary to chronic microvascular ischemia. No midline shift or significant intracranial mass effect. No acute intracranial hemorrhage. Cerebral ventricles: Complex cyst at the 3rd ventricle, similar from previous MRI given differences in technique. No obstructive hydrocephalus. Paranasal sinuses: Berj-ho-pndhstim paranasal sinus disease. Mastoid air cells: Mild partial opacification of the bilateral mastoid air cells. Bones: Unremarkable. No acute fracture. Soft tissues: Unremarkable. IMPRESSION: 1. No acute intracranial abnormality. 2. 

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
[2024-09-21] MEDS: MORPHINE 4MG/ML SYRINGE 4 MG IV (17:18)
[2024-09-21] MEDS: ONDANSETRON 4MG/2ML VIAL 4 MG IV (17:18)
[2024-09-21] MEDS: LACTATED RINGERS 1000ML 1,000 ML 999 ML IV (17:18)
--- NOTE | 2024-09-21 17:21 | HMH.ITSTN ---
GFR completion/results were overrode for the use of contrast media by the Physician on a risk vs. benefit situation with this patient.
[2024-09-21] MEDS: SODIUM CHLORIDE 0.9% 10ML SYR (RAD ONLY) 10 ML IV (17:40)
[2024-09-21] MEDS: IOPAMIDOL-370 (76%);100ML BOTTLE 160 ML IV (17:40)
[2024-09-21] MEDS: 0.9 % SODIUM CHLORIDE 50 ML VIAL IV (17:40)
[2024-09-21 18:00] LABS: Basophils # 0.1 K/mm3 (0-0.2); Basophils % 0.6 % (0.1-2.0); Eosinophils # 0.2 Kmm3 (0.0-0.4); Eosinophils % 2.4 % (0.1-12.0); Hemoglobin 16.6 g/dL (14.1-18.0); Immature Granulocytes # 0.02 10^3uL; Immature Granulocytes % 0.2 %; Lymphocytes # 2.4 K/mm3 (0.7-4.5); Mean Corpuscular HGB Conc 33.9 g/dL (31.8-35.4); Mean Corpuscular Hemoglobin 31.4 pg (27.0-31.2); Mean Corpuscular Volume 92.6 fl (80-94); Mean Platelet Volume 10.4 fl (7.4-10.4); Monocytes # 0.6 K/mm3 (0.1-1.0); Monocytes % 7.3 % (1.7-9.3); Neutrophils % 60.5 % (37.0-80.0); Nucleated Red Blood Cells # 0 10^3/uL; Nucleated Red Blood Cells % 0 %; Platelet Count 248 K/mm3 (142-424); Red Blood Count 5.29 M/mm3 (4.60-6.20); Red Cell Distribution Width 13.5 % (11.5-17.5); Red Cell Distribution Width-SD 46.6 fL; White Blood Count 8.2 K/mm3 (4.8-10.8)
[2024-09-21 18:08] LABS: Activated Partial Thrombo Time 26.6 seconds (22.8-30.6); INR 1.02 (0.9-1.1); Prothrombin Time 11.3 seconds (10.1-12.5)
[2024-09-21 19:01] LABS: Albumin Level 4.4 g/dl (3.5-5.0); Chloride 96 mmol/L (98-107); Potassium 3.7 mmoL/L (3.5-5.1); Sodium 128 mmol/L (136-145)
[2024-09-21 19:04] LABS: Alanine Aminotransferase 21 U/L (12-78); Albumin/Globulin Ratio 1.5 (1.1-1.8); Alkaline Phosphatase 65 U/L (38-126); Anion Gap 10.7 mEq/L (5-15); Aspartate Amino Transferase 33 U/L (17-59); Bilirubin,Total 0.7 mg/dl (0.2-1.3); Blood Urea Nitrogen 6 mg/dl (9-20); Carbon Dioxide 25 mmol/L (22.0-30.0); Creatinine Clearance Estimated 140 mL/min (50-200); Estimated Glomerular Filt Rate 90 ml/min (>60); GFR (African American) 109 ML/MIN (>60); Total Protein,Serum 7.4 g/dl (6.3-8.2)
[2024-09-21 19:05] LABS: Calcium 8.8 mg/dl (8.4-10.2); Glucose 292 mg/dl (74-100)
== END 2024-09-21 19:18 | disposition home or self-care (01) ==
PROVIDERS: Emergency Provider Student in an Organized Health Care Education/Training Program; PCP Family Medicine
DX: S32.020A Wedge compression fracture of second lumbar vertebra, initial encounter for closed fracture (principal); S32.018A Other fracture of first lumbar vertebra, initial encounter for closed fracture; S32.028A Other fracture of second lumbar vertebra, initial encounter for closed fracture; S32.038A Other fracture of third lumbar vertebra, initial encounter for closed fracture; S32.048A Other fracture of fourth lumbar vertebra, initial encounter for closed fracture; E87.1 Hypo-osmolality and hyponatremia; W11.XXXA Fall on and from ladder, initial encounter
CPT/HCPCS: 70450; 70496; 70498; 71275; 72125; 72128; 72131; 72192; 74174; 80053; 85025; 85610; 85730; 96361; 96374; 96375; 99291; J2270; J2405; J7120; Q9967